=== PATIENT | male | born 1970 | race Caucasian/White ===

== ENCOUNTER 2016-04-13 | Emergency (ER) | payer SELFPAY ==
--- NOTE | 2016-04-13 23:54 | ED ---
Skin/Abscess/FB HPI - General Chief complaint: Skin/Abscess/Foreign Body Stated complaint: abscess Time Seen by Provider: 04/13/16 23:44 Source: patient, RN notes reviewed Mode of arrival: ambulatory Limitations: no limitations - History of Present Illness Initial comments: 45-year-old male presents to the emergency department with a chief complaint of abscess to left arm. Patient has a history of sepsis denies history of MRSA. Patient states she's been no drainage is very hard and tender under the arm. Patient states that he was concerned due to the pain today thought that he should be seen. Patient states isn't currently having any other symptoms at this time.Patient denies any recent fever, chills, shortness of breath, chest pain, back pain, abdominal pain, nausea vomiting, numbness or tingling, dysuria or hematuria, constipation or diarrhea, headaches or visual changes, or any other current symptoms. - Related Data Previous Rx's Medication Instructions Recorded Sulfamethox-Tmp 800-160Mg [Bactrim 2 each PO Q12HR #56 tab 04/13/16 DS 800-160 mg] Allergies Allergy/AdvReac Type Severity Reaction Status Date / Time codeine Allergy Severe Dyspnea Verified 04/13/16 23:36 Review of Systems ROS Statement: Those systems with pertinent positive or pertinent negative responses have been documented in the HPI. ROS Other: All systems not noted in ROS Statement are negative. Past Medical History Additional Past Medical History / Comment(s): Abscess History of Any Multi-Drug Resistant Organisms: None Reported Past Surgical History: No Surgical Hx Reported Past Psychological History: Panic Disorder Smoking Status: Current every day smoker Past Alcohol Use History: None Reported Past Drug Use History: None Reported General Exam Limitations: no limitations General appearance: alert, in no apparent distress Head exam: Present: atraumatic, normocephalic, normal inspection ENT exam: Present: normal exam, mucous membranes moist Neck exam: Present: normal inspection. Absent: tenderness, meningismus, lymphadenopathy Respiratory exam: Present: normal lung sounds bilaterally. Absent: respiratory distress, wheezes, rales, rhonchi, stridor Cardiovascular Exam: Present: regular rate, normal rhythm, normal heart sounds. Absent: systolic murmur, diastolic murmur, rubs, gallop, clicks Extremities exam: Present: normal inspection, full ROM, normal capillary refill. Absent: tenderness, pedal edema, joint swelling, calf tenderness Neurological exam: Present: alert, oriented X3, CN II-XII intact. Absent: motor sensory deficit Psychiatric exam: Present: normal affect, normal mood Skin exam: Present: warm, dry, intact, other (Patient does appear to have an abscess under the left axilla that is indurated with no fluctuance) Course Vital Signs 04/13/16 23:34 Temperature 98.6 F Pulse Rate 88 Respiratory 18 Rate Blood Pressure 147/77 O2 Sat by Pulse 98 Oximetry Procedures - Procedures Initial comment: It was cleaned and prepped. An 18-gauge was used to excise the wound and no purulent material was received. Medical Decision Making - Medical Decision Making 45 yo male presents with appears to be an abscess on the left axilla however is very indurated with no fluctuance and no purulent material was excise. At this time we will start patient on antibiotics. We discussed return parameters and follow-up. We discussed all the patient's family's questions. He stated that they understood all questions have been answered. They will be discharged home. Disposition Clinical Impression: Abscess of left axilla Disposition: HOME SELF-CARE Condition: Stable Instructions: Abscess (ED) Additional Instructions: Please use medication as discussed. Please follow up with family doctor if symptoms have not improved over the next two days. Please return to the emergency room if your symptoms increase or worsen or for any other concerns. Prescriptions: Sulfamethox-Tmp 800-160Mg [Bactrim DS 800-160 mg] 2 each PO Q12HR #56 tab Referrals: Vielka Cerrato MD [Primary Care Provider] - 1-2 days Time of Disposition: 23:53
== END 2016-04-14 00:15 | disposition home or self-care (01) ==
CPT/HCPCS: 99282

== ENCOUNTER → 2018-07-14 | Outpatient (CLI) | payer OTHER ==
--- NOTE | 2018-07-14 13:16 | P.STRESS ---
- Stress Test Note Stress Test Results/Findings: Exam Performed: stress test Exam Date: 07/14/18 Reason for Exam: CHEST PAIN Height: 5 ft 11 in Weight: 109.769 kg Protocol: AVERY Stage: 2 Duration of Exercise: 4:30 Resting Heart Rate: 93 Resting Blood Pressure: 123/65 Maximum Achieved Heart Rate: 160 Maximum Achieved Blood Pressure: 184/51 85% PMHR: 148 100% PMHR: 174 METS: 6.4 Technologist Comment: Stress Test Results/Findings: This is a 47-year-old gentleman with history of chest pains being evaluated for cardiac status. New Stress data: Baseline EKG showed sinus rhythm with normal UT interval and QRS duration. Blood pressure at rest is 123/65 with pulse rate of 93. Patient walked on the Avery protocol for 4 minutes and 30 seconds achieving a maximum rate of 160 with a blood pressure 1 8451. EKGs taken during and after the exercise did not reveal any changes of ischemia. Final impression: #1. Negative stress test #2. Below average exercise capacity #3. Patient did not express any chest pain #4. No arrhythmias noted.
--- NOTE | 2018-07-15 09:32 | EST ---
Stress Test Results/Findings: Exam Performed: stress test Exam Date: 07/14/18 Reason for Exam: CHEST PAIN Height: 5 ft 11 in Weight: 109.769 kg Protocol: AVERY Stage: 2 Duration of Exercise: 4:30 Resting Heart Rate: 93 Resting Blood Pressure: 123/65 Maximum Achieved Heart Rate: 160 Maximum Achieved Blood Pressure: 184/51 85% PMHR: 148 100% PMHR: 174 METS: 6.4 Technologist Comment: Stress Test Results/Findings: This is a 47-year-old gentleman with history of chest pains being evaluated for cardiac status. New Stress data: Baseline EKG showed sinus rhythm with normal NM interval and QRS duration. Blood pressure at rest is 123/65 with pulse rate of 93. Patient walked on the Avery protocol for 4 minutes and 30 seconds achieving a maximum rate of 160 with a blood pressure 1 8451. EKGs taken during and after the exercise did not reveal any changes of ischemia. Final impression: #1. Negative stress test #2. Below average exercise capacity #3. Patient did not express any chest pain #4. No arrhythmias noted. MTDD
== END | disposition home or self-care (01) ==
LOC: RADNMMAIN 09:58
PROVIDERS: ATTEND Family Medicine
DX: R07.9 Chest pain, unspecified (principal); Z88.5 Allergy status to narcotic agent
CPT/HCPCS: 93017

== ENCOUNTER 2019-10-08 03:06 | Emergency (ER) | payer OTHER ==
--- NOTE | 2019-10-08 03:28 | ED ---
General Adult HPI - General Source: patient, police Mode of arrival: ambulatory Limitations: no limitations <Guzman Brothers - Last Filed: 10/08/19 06:33> <Deric Jovel - Last Filed: 10/08/19 10:08> - General Chief complaint: Psychiatric Symptoms Stated complaint: Depression Time Seen by Provider: 10/08/19 03:16 - History of Present Illness Initial comments: Dictation was produced using [employer] dictation software. please excuse any grammatical, word or spelling errors. This patient was cared for during a federal and state declared state of emergency secondary to Covid 19 Chief Complaint: 49-year-old female presents with depression History of Present Illness: 49-year-old male presents with depression. Patient states she's been crying a lot recently. Patient denies any suicidal or homicidal ideation. No visual auditory hallucinations. He has no pain complaints. Patient has no medical complaints. States that he is depressed because he is going to relationship problems with his . The ROS documented in this emergency department record has been reviewed and confirmed by me. Those systems with pertinent positive or negative responses have been documented in the HPI. All other systems are other negative and/or noncontributory. PHYSICAL EXAM: General Impression: Alert and oriented x3, not in acute distress HEENT: Normocephalic atraumatic, extra-ocular movements intact, pupils equal and reactive to light bilaterally, mucous membranes moist. Cardiovascular: Heart regular rate and rhythm Chest: Able to complete full sentences, no retractions, no tachypnea Abdomen: abdomen soft, non-tender, non-distended, no organomegaly Musculoskeletal: Pulses present and equal in all extremities, no peripheral edema Motor: no focal deficits noted Neurological: CN II-XII grossly intact, no focal motor or sensory deficits noted Skin: Intact with no visualized rashes Psych: Normal affect and mood ED course: 49-year-old male presents with depression vital signs upon arrival are within acceptable limits. Patient medically cleared for EPS evaluation. Physical examination is benign. Patient medically cleared for EPS evaluation. Pending EPS evaluation. Patient will be signed out to oncoming physician for follow-up of EPS recommendations. (Guzman Brothers) - Related Data Previous Rx's Medication Instructions Recorded Sulfamethox-Tmp 800-160Mg [Bactrim 2 each PO Q12HR #56 tab 04/13/16 DS 800-160 mg] Allergies Allergy/AdvReac Type Severity Reaction Status Date / Time codeine Allergy Severe Dyspnea Verified 10/08/19 03:14 Review of Systems ROS Other: All systems not noted in ROS Statement are negative. <Guzman Brothers - Last Filed: 10/08/19 06:33> ROS Other: All systems not noted in ROS Statement are negative. <Deric Jovel - Last Filed: 10/08/19 10:08> ROS Statement: Those systems with pertinent positive or pertinent negative responses have been documented in the HPI. Past Medical History Additional Past Medical History / Comment(s): Abscess History of Any Multi-Drug Resistant Organisms: None Reported Past Surgical History: No Surgical Hx Reported Past Psychological History: Anxiety, Depression, Panic Disorder Smoking Status: Current every day smoker Past Alcohol Use History: None Reported Past Drug Use History: None Reported <Guzman Brothers - Last Filed: 10/08/19 06:33> General Exam Limitations: no limitations <Guzman Brothers - Last Filed: 10/08/19 06:33> Course Vital Signs 10/08/19 03:11 Temperature 98.4 F Pulse Rate 94 Respiratory 18 Rate Blood Pressure 155/90 O2 Sat by Pulse 98 Oximetry Medical Decision Making <Deric Jovel - Last Filed: 10/08/19 10:08> - Medical Decision Making The patient was endorsed me by Dr. Brothers at her shift change. He's been resting comfortably throughout the morning. He was evaluated by the psychiatric service found not to be risk to himself or anyone else is a safety plan has been developed for him. (Deric Jovel) Disposition <Guzman Brothers - Last Filed: 10/08/19 06:33> Is patient prescribed a controlled substance at d/c from ED?: No <Deric Jovel - Last Filed: 10/08/19 10:08> Clinical Impression: Adjustment reaction of adult life Disposition: HOME SELF-CARE Condition: Good Instructions (If sedation given, give patient instructions): Stress (ED), Mood Disorders (ED) Referrals: Vielka Cerrato MD [Primary Care Provider] - 1-2 days
[2019-10-08 10:25] VITALS: BP 128/73; PULSE 80; RESP 16; TEMP 97.7
== END 2019-10-08 10:25 | disposition home or self-care (01) ==
LOC: EC 03:06
DX: F43.20 Adjustment disorder, unspecified (principal); F17.200 Nicotine dependence, unspecified, uncomplicated; Z88.5 Allergy status to narcotic agent
CPT/HCPCS: 82075; 99284

== ENCOUNTER 2019-10-13 15:33 | Emergency (ER) | payer OTHER ==
[2019-10-13 15:49] VITALS: RESP 18
--- NOTE | 2019-10-13 16:13 | ED ---
General Adult HPI - General Chief complaint: Psychiatric Symptoms Stated complaint: Mental Health Time Seen by Provider: 10/13/19 15:43 Source: patient, EMS, RN notes reviewed Mode of arrival: EMS Limitations: no limitations - History of Present Illness Initial comments: Patient is a pleasant 49-year-old male presenting to the emergency Department with depression and stress and suicidal thoughts. Patient states he had suicidal thoughts prior to arrival however no longer has those. Patient did not have a plan for suicide attempt. Patient states he has been stressed and depressed for the past 6 weeks or so. Patient has been previously admitted to mental health however that was around 8 years ago. No homicidal thoughts. No hallucinations. No alcohol or street drug use. No physical complaints. - Related Data Home Medications Medication Instructions Recorded Confirmed No Known Home Medications 10/13/19 10/13/19 Allergies Allergy/AdvReac Type Severity Reaction Status Date / Time codeine Allergy Severe Dyspnea Verified 10/13/19 16:58 Review of Systems ROS Statement: Those systems with pertinent positive or pertinent negative responses have been documented in the HPI. ROS Other: All systems not noted in ROS Statement are negative. Constitutional: Denies: fever Eyes: Denies: eye pain ENT: Denies: ear pain Respiratory: Denies: cough Cardiovascular: Denies: chest pain Endocrine: Denies: fatigue Gastrointestinal: Denies: abdominal pain Genitourinary: Denies: dysuria Musculoskeletal: Denies: back pain Skin: Denies: rash Neurological: Denies: weakness Psychiatric: Reports: anxiety, depression Past Medical History Additional Past Medical History / Comment(s): Abscess History of Any Multi-Drug Resistant Organisms: None Reported Past Surgical History: No Surgical Hx Reported Past Psychological History: Anxiety, Depression, Panic Disorder Smoking Status: Current every day smoker Past Alcohol Use History: None Reported Past Drug Use History: None Reported General Exam Limitations: no limitations General appearance: alert, in no apparent distress Head exam: Present: normocephalic Eye exam: Present: normal appearance Neck exam: Present: normal inspection Respiratory exam: Present: normal lung sounds bilaterally Cardiovascular Exam: Present: regular rate, normal rhythm GI/Abdominal exam: Present: soft. Absent: tenderness Extremities exam: Present: normal inspection Neurological exam: Present: alert Psychiatric exam: Present: depressed, flat affect Skin exam: Present: normal color Course Vital Signs 10/13/19 10/13/19 10/13/19 15:43 15:49 16:49 Temperature 98.5 F Pulse Rate 102 H Respiratory 18 18 18 Rate Blood Pressure 147/82 O2 Sat by Pulse 99 Oximetry Medical Decision Making - Medical Decision Making Patient seen by mental health services who recommends discharge and patient follow up with [facility] on Wednesday. Patient reevaluated and updated. - Lab Data Lab Results 10/13/19 Range/Units 17:48 Urine Opiates Screen Not Detected (NotDetected) Ur Oxycodone Screen Not Detected (NotDetected) Urine Methadone Screen Not Detected (NotDetected) Ur Propoxyphene Screen Not Detected (NotDetected) Ur Barbiturates Screen Not Detected (NotDetected) U Tricyclic Antidepress Not Detected (NotDetected) Ur Phencyclidine Scrn Not Detected (NotDetected) Ur Amphetamines Screen Detected H (NotDetected) U Methamphetamines Scrn Detected H (NotDetected) U Benzodiazepines Scrn Not Detected (NotDetected) Urine Cocaine Screen Not Detected (NotDetected) U Marijuana (THC) Screen Not Detected (NotDetected) Disposition Clinical Impression: Depression Disposition: HOME SELF-CARE Condition: Stable Instructions (If sedation given, give patient instructions): Depression (ED), Help Prevent Suicide (ED) Additional Instructions: Please follow-up with [facility] Wednesday as directed. He is also follow-up with primary care physician. Return for worsening symptoms, thoughts of self-harm or other concerns. Is patient prescribed a controlled substance at d/c from ED?: No Referrals: Vielka Cerrato MD [Primary Care Provider] - 1-2 days Time of Disposition: 18:33
[2019-10-13 18:18] LABS: Amphetamine Screen,Urine Detected (NotDetected); Barbiturate Screen,Urine Not Detected (NotDetected); Benzodiazepines Screen,Urine Not Detected (NotDetected); Cocaine Screen,Urine Not Detected (NotDetected); Methadone Screen, Urine Not Detected (NotDetected); Opiate Screen,Urine Not Detected (NotDetected); Oxycodone Screen, Urine Not Detected (NotDetected); Phencyclidine Screen,Urine Not Detected (NotDetected); Tricyclic Antidepressant,Urine Not Detected (NotDetected); Urn Cannabinoid Scrn Not Detected (NotDetected)
[2019-10-13] MEDS ORDERED: LORazepam 1 MG TAB PO STA ×2 (18:32→18:33)
[2019-10-13 18:51] VITALS: BP 116/76; PULSE 78; TEMP 98
== END 2019-10-13 18:55 | disposition home or self-care (01) ==
LOC: EC 15:33
DX: F32.9 Major depressive disorder, single episode, unspecified (principal); F41.9 Anxiety disorder, unspecified; R45.851 Suicidal ideations; F17.200 Nicotine dependence, unspecified, uncomplicated; Z88.5 Allergy status to narcotic agent
CPT/HCPCS: 80306; 82075; 99285

== ENCOUNTER 2019-10-17 04:57 | Inpatient (IN) | payer MEDICAID, OTHER ==
--- NOTE | 2019-10-17 05:00 | ED ---
Psych HPI - General Source: RN notes reviewed, old records reviewed - History of Present Illness Complaint: suicidal ideation, feels depressed -: unknown Associated Psychiatric Symptoms: depression History of same: Yes Quality: constant Improves With: none Worsens With: none Context: not taking psychiatric medications Associated Symptoms: denies other symptoms Treatments Prior to Arrival: placed on mental health hold If Self Harm: admits thoughts of self harm <Alex Pro - Last Filed: 10/17/19 06:09> <Deric Jovel - Last Filed: 10/17/19 10:15> - General Stated Complaint: mental health Time Seen by Provider: 10/17/19 05:00 - History of Present Illness Initial Comments: This is a 48-year-old male to the ER for evaluation patient presents for psychiatric illness and depression. Patient july, is on Facebook apparently her allegedly tonight EMS and PD was called by patient's . She did find patient having on the house they bring patient today for psychiatric evaluation he was here earlier last week or later [place] for psychiatric evaluation as well (Alex Pro) - Related Data Home Medications Medication Instructions Recorded Confirmed ARIPiprazole [Abilify] 5 mg PO HS 10/17/19 10/17/19 risperiDONE [RisperDAL] 0.25 mg PO HS 10/17/19 10/17/19 Allergies Allergy/AdvReac Type Severity Reaction Status Date / Time codeine Allergy Severe Dyspnea Verified 10/17/19 08:30 Review of Systems ROS Other: All systems not noted in ROS Statement are negative. <Alex Pro - Last Filed: 10/17/19 06:09> ROS Other: All systems not noted in ROS Statement are negative. <Deric Jovel - Last Filed: 10/17/19 10:15> ROS Statement: Those systems with pertinent positive or pertinent negative responses have been documented in the HPI. Past Medical History Additional Past Medical History / Comment(s): Abscess History of Any Multi-Drug Resistant Organisms: None Reported Past Surgical History: No Surgical Hx Reported Past Psychological History: Anxiety, Depression, Panic Disorder Smoking Status: Current every day smoker Past Alcohol Use History: None Reported Past Drug Use History: None Reported <Alex Pro - Last Filed: 10/17/19 06:09> General Exam General appearance: alert, in no apparent distress Head exam: Present: atraumatic, normocephalic, normal inspection Eye exam: Present: normal appearance, PERRL, EOMI. Absent: scleral icterus, conjunctival injection, periorbital swelling ENT exam: Present: normal exam, mucous membranes moist Neck exam: Present: normal inspection. Absent: tenderness, meningismus, lymphadenopathy Respiratory exam: Present: normal lung sounds bilaterally. Absent: respiratory distress, wheezes, rales, rhonchi, stridor Cardiovascular Exam: Present: normal rhythm, tachycardia, normal heart sounds. Absent: systolic murmur, diastolic murmur, rubs, gallop, clicks GI/Abdominal exam: Present: soft, normal bowel sounds. Absent: distended, tenderness, guarding, rebound, rigid Extremities exam: Present: normal inspection, full ROM, normal capillary refill. Absent: tenderness, pedal edema, joint swelling, calf tenderness Back exam: Present: normal inspection Neurological exam: Present: alert, oriented X3, CN II-XII intact Psychiatric exam: Present: normal affect, normal mood Skin exam: Present: warm, dry, intact, normal color. Absent: rash <Alex Pro - Last Filed: 10/17/19 06:09> Course <Alex Pro - Last Filed: 10/17/19 06:09> Vital Signs 10/17/19 10/17/19 05:00 08:00 Temperature 99.3 F Pulse Rate 113 H Respiratory 18 18 Rate Blood Pressure 176/97 O2 Sat by Pulse 100 Oximetry - Reevaluation(s) Reevaluation #1: 10/17/19 06:11 Medical record and ER visit are reviewed (Alex Pro) Reevaluation #2: 10/17/19 06:11 Patient is medically clear for psychiatric evaluation (Alex Pro) Medical Decision Making <Deric Jovel - Last Filed: 10/17/19 10:15> - Medical Decision Making The patient was evaluated by psychiatric service and found to be wrist to himself I did fill out a clinical certification. Patient be admitted for inpatient treatment of depression and suicidal ideation. (Deric Jovel) Disposition <Alex Pro - Last Filed: 10/17/19 06:09> <Deric Jovel - Last Filed: 10/17/19 10:15> Clinical Impression: Suicidal ideation, Depression Disposition: TRANSFER TO PSYCH HOSP/UNIT Condition: Fair Referrals: Vielka Cerrato MD [Primary Care Provider] - 1-2 days
[2019-10-17] MEDS ORDERED: ACETAMINOPHEN TAB 325 MG TAB PO PRN (12:43)
[2019-10-17] MEDS ORDERED: ZIPRASIDONE 20 MG VIAL IM PRN (12:43)
[2019-10-17] MEDS ORDERED: MAGNESIUM HYDROXIDE 2,400 MG/10 ML CUP PO PRN (12:43)
[2019-10-17] MEDS ORDERED: MAG HYDROX/AL HYDROX/SIMETH 30 ML CUP PO PRN (12:43)
[2019-10-17] MEDS ORDERED: LORazepam 1 MG TAB PO PRN (12:43)
[2019-10-17] MEDS: NICOTINE 14MG/24HR PATCH TRANSDERM SCH (13:37)
[2019-10-17] MEDS ORDERED: ARIPiprazole 5 MG TAB PO SCH (21:00)
[2019-10-18 08:30] LABS: ALT 25 U/L (4-49); AST 28 U/L (17-59); African American GFR (CKD) >90 (>60 ml/min/1.73 sqM); Albumin 3.4 g/dL (3.5-5.0); Alkaline Phosphatase 82 U/L (38-126); Anion Gap 2 mmol/L; Blood Urea Nitrogen 14 mg/dL (9-20); Calcium 8.4 mg/dL (8.4-10.2); Carbon Dioxide 31 mmol/L (22-30); Chloride 107 mmol/L (98-107); Glucose 106 mg/dL (74-99); Non-African American GFR(CKD) >90 (>60 ml/min/1.73 sqM); Potassium 4.1 mmol/L (3.5-5.1); Sodium 140 mmol/L (137-145); Total Bilirubin 0.4 mg/dL (0.2-1.3); Total Protein 6.2 g/dL (6.3-8.2)
[2019-10-18] MEDS: NICOTINE 14MG/24HR PATCH TRANSDERM SCH (08:39)
--- NOTE | 2019-10-18 12:05 | P.HP ---
Psychiatric H&P - . H&P Date: 10/18/19 History & Physical: Allergies Allergy/AdvReac Type Severity Reaction Status Date / Time codeine Allergy Severe Dyspnea Verified 10/17/19 13:03 Vital Signs Temp 97.0 F L 10/17/19 13:42 Pulse 80 10/17/19 13:03 Resp 18 10/17/19 13:42 BP 131/85 10/17/19 13:03 Pulse Ox 98 10/17/19 13:42 Intake & Output 10/17/19 10/18/19 10/18/19 18:59 06:59 18:59 Weight 119.295 kg Laboratory Last Values Sodium 140 mmol/L (137-145) 10/18/19 07:35 Potassium 4.1 mmol/L (3.5-5.1) 10/18/19 07:35 Chloride 107 mmol/L (98-107) 10/18/19 07:35 Carbon Dioxide 31 mmol/L (22-30) H 10/18/19 07:35 Anion Gap 2 mmol/L 10/18/19 07:35 BUN 14 mg/dL (9-20) 10/18/19 07:35 Creatinine 0.97 mg/dL (0.66-1.25) 10/18/19 07:35 Est GFR (CKD-EPI)AfAm >90 (>60 ml/min/1.73 sqM) 10/18/19 07:35 Est GFR (CKD-EPI)NonAf >90 (>60 ml/min/1.73 sqM) 10/18/19 07:35 Glucose 106 mg/dL (74-99) H 10/18/19 07:35 Calcium 8.4 mg/dL (8.4-10.2) 10/18/19 07:35 Total Bilirubin 0.4 mg/dL (0.2-1.3) 10/18/19 07:35 AST 28 U/L (17-59) 10/18/19 07:35 ALT 25 U/L (4-49) 10/18/19 07:35 Alkaline Phosphatase 82 U/L (38-126) 10/18/19 07:35 Total Protein 6.2 g/dL (6.3-8.2) L 10/18/19 07:35 Albumin 3.4 g/dL (3.5-5.0) L 10/18/19 07:35 10/18/19 11:57 IDENTIFYING DATA: Patient is a 49-year-old male who is currently lives with his mother and house has 2 kids is unemployed. HPI: Patient presented to the hospital yesterday for depression and suicidal thoughts. Patient was seen to previous times in the ER for similar complaints within the past 10 days. Patient was brought in by police and was petitioned stating that patient made suicidal statements towards his on Facebook. Patient's called the housecleaner who brought him in the hospital. Patient was seen today for evaluation and claims that he recently had with his approximately 1-1/2 months ago. He states that they have been having relationship issues and have recently started talking again. He states that he has been hoping that there would be a spark and that they would get back together romantically. He states that he feels that she has been playing "mind games with me" and stated that "she wants to be with me on one hand and then on the other she doesn't". She states that he sent the message to her over Facebook and claims that he regretted it right away and claims that he was mainly seeking "attention" from her. He admits to impulsivity problems. He states that his mood has been "unstable" however denies any depression at this time. He states that he does not have any anxiety. He claims that he was on his Abilify by mouth through [facility] however stopped taking his medications 3 months ago. He states that he sleeps about 7-8 hours a night. Patient denies any suicidal or homicidal ideations intent or plan. At this time patient denies any auditory or visual hallucinations. Patient denies any flight of ideas racing thoughts and increased in goal directed behavior. Patient admits to using cigarettes daily and claims to use meth approximately 3-4 times a week and states that his last use was 1 week ago. He denies any other recreational drug use and alcohol. PAST PSYCHIATRIC HISTORY: Patient states that he has a history of PTSD and major depressive disorder. Patient was previously on Abilify by mouth however stopped taking it 3 months ago. He was supposed to be on Abilify Maintenna long-acting injection however he refused to get his injection in June 2019. Games at his last psychiatric hospitalization was 9 years ago. Ate that he follows up with [facility] in the nurse practitioner Dennise. Patient denies any history of suicide attempts in the past. PMH:denies ALLERGIES: as per EMR CHEMICAL DEPENDENCY HISTORY: as per HPI FAMILY PSYCHIATRIC/SUBSTANCE USE HISTORY: He states that his son has autism SOCIAL HISTORY: Patient was born and raised in [place] and claims that he completed up to the 11th grade. He states that he currently lives with his mother in a house and has 2 kids is unemployed. He denies any legal problems in the past.. MENTAL STATUS EXAM: General Appearance: Patient appears to be stated age is overweight, alert, directable, and attempts to cooperate. Patient appears to have poor hygiene and grooming. Behavior: Patient is seated without any agitated behavior. Tearful at times. Speech: Patient's speech is fluent and nonpressured. Mood/Affect: Patient reports their mood is "unstable". affect is congruent and tearful. Suicidality/Homicidality: Patient denies having any homicidal ideation intent or plan. Denies any suicidal ideations intent or plan Perceptions: Patient denies any visual hallucinations and denies any auditory hallucinations Though content/process: There is no evidence of any delusional thought content and thought process is linear and goal-directed. [place]. Memory and concentration: AOX3, grossly intact for the purposes of this session. Can spell "WORLD" backwards Judgment and insight: poor/superficial STRENGTHS/WEAKNESSES: strength is that patient is resilient. Weakness is that patient has poor judgment and is impulsive INTELLECT: Below average IMPRESSIONS: Mood disorder unspecified, rule out bipolar disorder versus depression History of PTSD Methamphetamine abuse Nicotine dependence PLAN: -Patient is admitted under voluntary status to MHU for stabilization of psychiatric symptoms and safety. Patient signed adult voluntary form and medication consent and is placed in patient's chart. -Medications : Will start patient on Abilify by mouth which will be titrated up to 7.5 mg nightly for mood stabilization. Patient is agreeable to take Abilify Maintenna long-acting injection prior to discharge to ensure compliance. -Ativan and Geodon PRN for agitation/aggression -Patient was counselled on substance abuse and desired to cut back on use -Patient was informed of the risks, benefits and side effects of the medication and patient verbally consented to taking the medications. Patient signed med consent form and was placed in chart. -Internal Medicine consult to perform medical evaluation and physical. -NRT - nicotine patch -SW on board for discharge planning. Encourage patient to participate in groups to work on coping skills.
[2019-10-18] MEDS ORDERED: ARIPiprazole 5 MG TAB PO SCH (21:00)
--- NOTE | 2019-10-19 00:02 | P.MDCNMH ---
History of Present Illness H&P Date: 10/18/19 Chief Complaint: suicidal ideation Patient is a 49-year-old male with a known history of DC, no history of cardiac catheterization or PCI, currently everyday smoker was brought to the hospital for psychiatric evaluation and suicidal ideation. Apparently patient posted on his Facebook that he is suicidal and patient's called the police department. Patient is also currently undergoing divorce. Patient has not been taking his medications. He is currently on Abilify and Risperdal at home. Otherwise denied any chest pain or shortness of breath. No nausea vomiting abdominal pain or diarrhea. No dysuria or hematuria. No cough or sputum production. Denied any recent illnesses. Laboratory data showed sodium 140, potassium 4.1, BUN 14 and creatinine 0.97 Albumin 3.4 Blood sugar is 106 Review of Systems Constitutional: Patient denies any fever or chills . No generalized weakness or weight loss. Abdomen: Patient denied nausea vomiting and diarrhea and abdominal pain. Cardiovascular: Patient denies any chest pain or short of breath no palpitations. Respiratory: patient denied any cough is from production. No shortness of breath Neurologic: Patient denied any numbness or tingling headache. Musculoskeletal: Patient denies any complaints of joint swelling or deformity. Skin: Negative Psychiatric: Negative Endocrine: No heat or cold intolerance. No recent weight gain. Genitourinary: No dysuria or hematuria. All other 14 point ROS negative except the above Past Medical History Past Medical History: Myocardial Infarction (DC) Additional Past Medical History / Comment(s): Abscess Last Myocardial Infarction Date:: 2016 History of Any Multi-Drug Resistant Organisms: None Reported Past Surgical History: No Surgical Hx Reported Smoking Status: Current every day smoker Medications and Allergies Home Medications Medication Instructions Recorded Confirmed Type ARIPiprazole [Abilify] 5 mg PO HS 10/17/19 10/17/19 History risperiDONE [RisperDAL] 0.25 mg PO HS 10/17/19 10/17/19 History Allergies Allergy/AdvReac Type Severity Reaction Status Date / Time codeine Allergy Severe Dyspnea Verified 10/17/19 13:03 Physical Exam PHYSICAL EXAMINATION: Patient is lying in the bed comfortably, no acute distress, awake alert and oriented.. HEENT: Normocephalic. Neck is supple. Pupils reactive. Nostrils clear. Oral cavity is moist. Ears reveal no drainage. Neck reveals no JVD, carotid bruits, or thyromegaly. CHEST EXAMINATION: Trachea is central. Symmetrical expansion. Lung trujillo clear to auscultation and percussion. CARDIAC: Normal S1, S2 with no gallops. No murmurs ABDOMEN: Soft. Bowel sounds normal. No organomegaly. No abdominal bruits. Extremities: reveal no edema. No clubbing or cyanosis Neurologically awake, alert, oriented x3 with well-coordinated movements. No focal deficits noted Skin: No rash or skin lesions. Psychiatric: Coperative. Nonsuicidal Musculoskeletal: No joint swelling or deformity. Normal range of motion. Cranial Nerve Examination - Cranial Nerves Cranial Nerve I- Olfactory: Intact Cranial Nerve II- Optic: Intact Cranial Nerve III- Oculomotor: Intact Cranial Nerve IV- Trochlear: Intact Cranial Nerve V- Trigeminal: Intact Cranial Nerve - Abducens: Intact Cranial Nerve VII- Facial: Intact Cranial Nerve VIII- Auditory: Intact Cranial Nerve IX- Glossopharyngeal: Intact Cranial Nerve X- Vagus: Intact Cranial Nerve XI- Accessory: Intact Cranial Nerve XII- Hypoglossal: Intact Results CBC & Chem 7: 10/18/19 07:35 Labs: Abnormal Lab Results - Last 24 Hours (Table) 10/18/19 Range/Units 07:35 Carbon Dioxide 31 H (22-30) mmol/L Glucose 106 H (74-99) mg/dL Total Protein 6.2 L (6.3-8.2) g/dL Albumin 3.4 L (3.5-5.0) g/dL Assessment and Plan Assessment: Depression with suicidal thoughts. Denied any plan. Mood disorder. History of PTSD Depression Ongoing nicotine addiction Morbid obesity BMI 35.7 DVT prophylaxis with early ambulation Plan: Patient will be continued on current psychiatric medications. Smoking cessation has been counseled. Further recommendations based on the clinical course. Thank you for your consult.
[2019-10-19] MEDS: NICOTINE 14MG/24HR PATCH TRANSDERM SCH (08:33)
--- NOTE | 2019-10-19 10:27 | P.PN ---
Progress Note - Text Progress Note Date: 10/19/19 Interval History: Patient was seen [wandering the hallways] and was directable and agreeable to speak with music writer in the office. Patient continues to be superficial and minimizing his reasons for being in the hospital. He continues to be superficial but his medications and speaking about discharge. He claims that his mood has been gradually improving. He states that he spoke with his yesterday as she came to visit him and states that she believes that he is more stable when he is taking his medications at home. He states that he has been going to groups and trying to participate as best as he can. He claims that he slept approximately 7 hours last night. Patient was tearful at times when speaking about home and about his impulsivity. At this time patient denies any suicidal or homical ideations, intent or plan. Patient denies any auditory, visual hallucinations and denies any paranoia or delusions. Patient denies any side effects from the medications and has been compliant with meds. Mental Status Exam: General Appearance: Patient appears to be stated age is overweight, alert, directable, and attempts to cooperate. Patient appears to have poor hygiene and grooming. Behavior: Patient is seated without any agitated behavior. Tearful at times. Superficial at times. Speech: Patient's speech is fluent and nonpressured. Mood/Affect: Patient reports their mood is "getting there". affect is congruent Suicidality/Homicidality: Patient denies having any homicidal ideation intent or plan. Denies any suicidal ideations intent or plan Perceptions: Patient denies any visual hallucinations and denies any auditory hallucinations Though content/process: There is no evidence of any delusional thought content and thought process is linear and goal-directed. [place]. Focused on discharge Memory and concentration: AOX3, grossly intact for the purposes of this session. Judgment and insight: poor/superficial, improving mildly Assessment: Mood disorder unspecified, rule out bipolar disorder versus depression History of PTSD Methamphetamine abuse Nicotine dependence Plan: -Patient is admitted under voluntary status to MHU for stabilization of psychiatric symptoms and safety. Patient signed adult voluntary form and medication consent and is placed in patient's chart. -Medications : Increased Abilify by mouth 10 mg nightly for mood stabilization. Patient is agreeable to take Abilify Maintenna long-acting injection prior to discharge to ensure compliance. -Ativan and Geodon PRN for agitation/aggression -Patient was counselled on substance abuse and desired to cut back on use -Patient was informed of the risks, benefits and side effects of the medication and patient verbally consented to taking the medications. Patient signed med consent form and was placed in chart. -Internal Medicine consult to perform medical evaluation and physical. -NRT - nicotine patch -SW on board for discharge planning. Encourage patient to participate in groups to work on coping skills. Likely discharge in 1-2 days.
[2019-10-19] MEDS ORDERED: ARIPiprazole 10 MG TAB PO SCH (21:00)
[2019-10-20 04:03] VITALS: RESP 17
[2019-10-20 06:31] VITALS: BP 129/60; PULSE 87
[2019-10-20] MEDS: NICOTINE 14MG/24HR PATCH TRANSDERM SCH (08:52)
[2019-10-20] MEDS ORDERED: ARIPiprazole IM SYRINGE 400 MG (NO CHARGE) IM ONE (09:19)
--- NOTE | 2019-10-20 09:19 | P.DS ---
Providers Date of admission: 10/17/19 12:19 Expected date of discharge: 10/20/19 Attending physician: Nathanael Mcdonough MD Consults: 10/17/19 12:43 Consult Physician Routine Consulting Provider: Lanette Mckeon Consult Reason/Comments: History and Physical Do you want consulting provider notified?: Yes Primary care physician: Saqib Vora - Discharge Diagnosis(es) (1) Unspecified mood [affective] disorder Current Visit: Yes Status: Acute Priority: High (2) History of posttraumatic stress disorder (PTSD) Current Visit: Yes Status: Acute Priority: Medium (3) Methamphetamine abuse Current Visit: Yes Status: Acute Priority: Medium (4) Nicotine dependence Current Visit: Yes Status: Acute Priority: Low Hospital Course: Admission HPI: Patient is a 49-year-old male who is currently lives with his mother and house has 2 kids is unemployed. Patient presented to the hospital yesterday for depression and suicidal thoughts. Patient was seen to previous times in the ER for similar complaints within the past 10 days. Patient was brought in by police and was petitioned stating that patient made suicidal statements towards his on Facebook. Patient's called the senior automation engineer who brought him in the hospital. Patient was seen today for evaluation and claims that he recently had with his approximately 1-1/2 months ago. He states that they have been having relationship issues and have recently started talking again. He states that he has been hoping that there would be a spark and that they would get back together romantically. He states that he feels that she has been playing "mind games with me" and stated that "she wants to be with me on one hand and then on the other she doesn't". She states that he sent the message to her over Facebook and claims that he regretted it right away and claims that he was mainly seeking "attention" from her. He admits to impulsivity problems. He states that his mood has been "unstable" however denies any depression at this time. He states that he does not have any anxiety. He claims that he was on his Abilify by mouth through [facility] however stopped taking his medications 3 months ago. He states that he sleeps about 7-8 hours a night. Patient denies any suicidal or homicidal ideations intent or plan. At this time patient denies any auditory or visual hallucinations. Patient denies any flight of ideas racing thoughts and increased in goal directed behavior. Patient admits to using cigarettes daily and claims to use meth approximately 3-4 times a week and states that his last use was 1 week ago. He denies any other recreational drug use and alcohol. Hospital course: Upon admission to the unit patient was initially superficial and labile. Patient was however directable and agreeable to commence treatment. Patient got along well with other patients on the unit and followed unit protocol. Patient was compliant with the medications and denied any side effects throughout hospital course. Patient was started on Abilify and titrated up to a dose of 10 mg nightly for mood stabilization. Patient was transitioned onto Abilify Maintenna long-acting injection and given dose of 400 mg IM on day of discharge 10/20/2019 and will be due for his next long-acting injection 400 mg on 11/17/2019. Patient spoke of his stressors and engaged in therapy both group and individual. Patient was also seen by medical team for history and physical exam. Throughout the course of the hospitalization patient gradually improved with regards to mood, anxiety, sleep and became future oriented with improved insight and judgment. On the day of discharge patient denied any suicidal or homicidal ideations intent or plan denied any auditory or visual hallucinations. Patient endorsed wanting to live for his future and his family. The patient denied any access to guns or weapons. Patient denied any paranoia and did not endorse any delusions. Patient does have a significant history of substance abuse and was counseled on abstaining from all substances including alcohol and marijuana. Patient was offered however declined inpatient substance-abuse rehab and wanted to quit substance use on his own. Patient was also counseled on the medications and need for regular compliance and was encouraged to follow-up with their outpatient appointment for mental health and also for primary care. Prior to discharge a family meeting will be arranged by medical social consultant to answer any questions and ensure safety upon discharge. Mental status exam: General Appearance: Patient appears to be stated age is overweight, alert, pleasant, and cooperative. Patient is in no acute distress and has fair hygiene and grooming Behavior: Patient is calmly seated without any agitated behavior. Cooperative today. Speech: Patient's speech is fluent and nonpressured. Mood/Affect: Patient reports their mood is "good", affect is congruent and euthymic. Suicidality/Homicidality: Patient denies having any suicidal or homicidal ideation intent or plan. Perceptions: Patient denies any auditory or visual hallucinations. Though content/process: There is no evidence of any delusional thought content and thought process is linear and goal-directed. [place]. more future oriented Memory and concentration: AOX3, grossly intact for the purposes of this session. Can spell "WORLD" backwards correctly. Judgment and insight: Improved with guarded prognosis Impression: Mood disorder unspecified, rule out bipolar disorder versus depressive disorder History of PTSD Methamphetamine abuse Nicotine dependence Plan: -Continue with discharge today as patient has improved and stabilized psychiatrically and is not currently an imminent threat to himself and/or others. Patient will remain at chronically elevated risk for harm to self and/or others due to his impulsivity and polysubstance abuse. -Continue medications: Continue with Abilify by mouth 10 mg nightly for mood stabilization for 14 days then discontinue. Patient was transitioned onto Abilify Maintenna long-acting injection and given dose of 400 mg IM on day of discharge 10/20/2019 and will be due for his next long-acting injection 400 mg on 11/17/2019. -Patient was counseled on the need for medication compliance and appropriate follow-up at mental health and also primary care for medical issues. Patient verbalized understanding and agreed. -Social work to arrange for and conduct family meeting to ensure safety upon discharge and answer any questions/concerns. Social work also to arrange for patients follow up appointments with [facility] for psychiatric care along with follow up with primary care provider. -Patient counseled on abstaining from recreational drugs and marijuana and alcohol. Was informed/educated on the adverse effects on their physical and mental health. Patient verbally agreed and understood. Patient was offered substance abuse treatment however declined at this time and wanted to cut back use on his own. -Patient was instructed to return to the hospital or seek immediate medical care if their psychiatric or medical symptoms do worsen or reoccur. Allergies Allergy/AdvReac Type Severity Reaction Status Date / Time codeine Allergy Severe Dyspnea Verified 10/17/19 13:03 Laboratory Results Sodium 140 mmol/L (137-145) 10/18/19 07:35 Potassium 4.1 mmol/L (3.5-5.1) 10/18/19 07:35 Chloride 107 mmol/L (98-107) 10/18/19 07:35 Carbon Dioxide 31 mmol/L (22-30) H 10/18/19 07:35 Anion Gap 2 mmol/L 10/18/19 07:35 BUN 14 mg/dL (9-20) 10/18/19 07:35 Creatinine 0.97 mg/dL (0.66-1.25) 10/18/19 07:35 Est GFR (CKD-EPI)AfAm >90 (>60 ml/min/1.73 sqM) 10/18/19 07:35 Est GFR (CKD-EPI)NonAf >90 (>60 ml/min/1.73 sqM) 10/18/19 07:35 Glucose 106 mg/dL (74-99) H 10/18/19 07:35 Calcium 8.4 mg/dL (8.4-10.2) 10/18/19 07:35 Total Bilirubin 0.4 mg/dL (0.2-1.3) 10/18/19 07:35 AST 28 U/L (17-59) 10/18/19 07:35 ALT 25 U/L (4-49) 10/18/19 07:35 Alkaline Phosphatase 82 U/L (38-126) 10/18/19 07:35 Total Protein 6.2 g/dL (6.3-8.2) L 10/18/19 07:35 Albumin 3.4 g/dL (3.5-5.0) L 10/18/19 07:35 Vital Signs Temp 97.9 F 10/20/19 04:02 Pulse 87 10/20/19 04:02 Resp 17 10/20/19 04:02 BP 129/60 10/20/19 04:02 Pulse Ox 98 10/20/19 04:02 Patient Condition at Discharge: Stable Plan - Discharge Summary New Discharge Prescriptions: New ARIPiprazole [Abilify] 10 mg PO HS 14 Days #14 tab ARIPiprazole IM [Abilify Maintena] 400 mg IM QMONTH #1 vial Nicotine 14Mg/24Hr Patch [Habitrol] 1 patch TRANSDERM DAILY 14 Days patch Acetaminophen Tab [Tylenol] 650 mg PO Q4HR PRN tab PRN Reason: Pain/Discomfort Discontinued risperiDONE [RisperDAL] 0.25 mg PO HS ARIPiprazole [Abilify] 5 mg PO HS Discharge Medication List ARIPiprazole IM [Abilify Maintena] 400 mg IM QMONTH #1 vial 10/20/19 [Rx] ARIPiprazole [Abilify] 10 mg PO HS 14 Days #14 tab 10/20/19 [Rx] Acetaminophen Tab [Tylenol] 650 mg PO Q4HR PRN tab 10/20/19 [Rx] Nicotine 14Mg/24Hr Patch [Habitrol] 1 patch TRANSDERM DAILY 14 Days patch 10/20/19 [Rx] Follow up Appointment(s)/Referral(s): [facility] [Outside] - 10/25/19 9:00 am (10/25/19 at 9am with Dennise at [facility] 11/02/19 at 9 am with Jose J by phone) Vielka Cerrato MD [Primary Care Provider] - 1-2 days Activity/Diet/Wound Care/Special Instructions: Activity and diet as tolerated. Avoid the use of street drugs and alcohol. Take all medications as prescribed. When you are in need of refills on your medications please contact your medical provider and/or outpatient psychiatrist to have this done. Please go to scheduled outpatient appointment for aftercare treatment. If symptoms return or become worse, call the crisis line at and/or go to the nearest emergency room for evaluation Discharge Disposition: HOME SELF-CARE
[2019-10-20 13:23] VITALS: TEMP 98.6
== END 2019-10-20 17:35 | disposition home or self-care (01) | DRG 885 ==
LOC: EC 04:57 → 3MHU 12:19
PROVIDERS: ADMIT Psychiatry & Neurology Psychiatry; ATTEND Psychiatry & Neurology Psychiatry
DX: F31.9 Bipolar disorder, unspecified (principal); R45.851 Suicidal ideations; Z91.14 Patient's other noncompliance with medication regimen; F15.10 Other stimulant abuse, uncomplicated; F43.10 Post-traumatic stress disorder, unspecified; F17.210 Nicotine dependence, cigarettes, uncomplicated; F41.0 Panic disorder [episodic paroxysmal anxiety]; R45.87 Impulsiveness; E66.01 Morbid (severe) obesity due to excess calories; I25.2 Old myocardial infarction; Z68.35 Body mass index [BMI] 35.0-35.9, adult; Z79.899 Other long term (current) drug therapy; Z56.0 Unemployment, unspecified; Z88.5 Allergy status to narcotic agent; Z81.8 Family history of other mental and behavioral disorders
CPT/HCPCS: 80053; 82075; 99285

== ENCOUNTER 2019-11-16 11:06 | Inpatient (IN) | payer MEDICAID, OTHER ==
--- NOTE | 2019-11-16 11:50 | ED ---
Psych HPI - General Source: EMS Mode of arrival: EMS <Katie Coffman - Last Filed: 11/16/19 11:48> <Shadi Wetzel - Last Filed: 11/16/19 14:40> - General Chief Complaint: Psychiatric Symptoms Stated Complaint: Mental Health Time Seen by Provider: 11/16/19 11:08 - History of Present Illness Initial Comments: Patient is a 49-year-old male presenting to the emergency department via police escort for psychiatric evaluation. Police report that they were called by patient's [id number] stating that patient was suicidal and had a plan to "suicide by copier operator." Patient states he was actually on the phone with his counselor when police arrived at his house. Patient denies any suicidal or homicidal thoughts at this time. He states he is currently going through a divorce with his , and he believes the 's family did this to him on purpose. Patient states he has been seen in the same counselor for many years now, always keeps appointments, is currently receiving medication. Patient denies any alcohol or drug use. He denies any pain today. He has no further complaints. (Katie Coffman) - Related Data Previous Rx's Medication Instructions Recorded ARIPiprazole IM [Abilify Maintena] 400 mg IM QMONTH #1 vial 10/20/19 ARIPiprazole [Abilify] 10 mg PO HS 14 Days #14 tab 10/20/19 Acetaminophen Tab [Tylenol] 650 mg PO Q4HR PRN tab 10/20/19 Allergies Allergy/AdvReac Type Severity Reaction Status Date / Time codeine Allergy Severe Dyspnea Verified 11/16/19 12:00 Review of Systems ROS Other: All systems not noted in ROS Statement are negative. <Katie Coffman - Last Filed: 11/16/19 11:48> ROS Other: All systems not noted in ROS Statement are negative. <Shadi Wetzel - Last Filed: 11/16/19 14:40> ROS Statement: Those systems with pertinent positive or pertinent negative responses have been documented in the HPI. Past Medical History Past Medical History: Myocardial Infarction (ID) Additional Past Medical History / Comment(s): Abscess Last Myocardial Infarction Date:: 2016 History of Any Multi-Drug Resistant Organisms: None Reported Past Surgical History: No Surgical Hx Reported Past Psychological History: Anxiety, Depression, Panic Disorder Smoking Status: Current every day smoker Past Alcohol Use History: None Reported Past Drug Use History: None Reported <Katie Coffman - Last Filed: 11/16/19 11:48> General Exam Limitations: no limitations <MeghnaKatie Jelena - Last Filed: 11/16/19 11:48> - General Exam Comments Initial Comments: GENERAL: Patient is well-developed and well-nourished. Patient is nontoxic and in no acute distress. HEAD: Atraumatic, normocephalic. EYES: Pupils equal round and reactive to light, extraocular movements intact, sclera anicteric, conjunctiva are normal. Eyelids were unremarkable. ENT: TMs normal, nares patent, oropharynx clear without exudates. Moist mucous membranes. NECK: Normal range of motion, supple without lymphadenopathy or JVD. LUNGS: Unlabored respirations. Breath sounds clear to auscultation bilaterally and equal. No wheezes rales or rhonchi. HEART: Regular rate and rhythm without murmurs, rubs or gallops. ABDOMEN: Soft, nontender, normoactive bowel sounds. No guarding, no rebound. No masses appreciated. : Deferred MUSCULOSKELETAL: Normal extremities with adequate strength and normal range of motion, no pitting or edema. No clubbing or cyanosis. NEUROLOGICAL: Patient is alert and oriented x 3. Motor and sensory are also intact. Cranial nerves II through XII grossly intact. Symmetrical smile. Normal speech, normal gait. PSYCH: Normal mood, normal affect. SKIN: Warm, Dry, normal turgor, no rashes or lesions noted. (Katie Coffman) Course Vital Signs 11/16/19 11:15 Temperature 98.1 F Pulse Rate 93 Respiratory 17 Rate Blood Pressure 150/86 O2 Sat by Pulse 100 Oximetry Medical Decision Making <Shadi Wetzel - Last Filed: 11/16/19 14:40> - Medical Decision Making Patient was seen by mental health services with plan for admission. I did reevaluate patient. Patient does not recall suicidal statements. Patient was brought in by police and EMS. Petition has specific suicidal statement made. Patient admits to being depressed. Positive clinical certificate completed. (Shadi Wetzel) Disposition <Katie Coffman - Last Filed: 11/16/19 11:48> Is patient prescribed a controlled substance at d/c from ED?: No Decision Time: 14:40 <Shadi Wetzel - Last Filed: 11/16/19 14:40> Clinical Impression: Depression, Suicidal ideation Disposition: TRANSFER TO PSYCH HOSP/UNIT Referrals: Serafin Jones MD [Primary Care Provider] - 1-2 days
[2019-11-16] MEDS ORDERED: LORazepam 1 MG TAB PO PRN (18:31)
[2019-11-16] MEDS ORDERED: ZIPRASIDONE 20 MG VIAL IM PRN (18:31)
[2019-11-16] MEDS ORDERED: MAGNESIUM HYDROXIDE 2,400 MG/10 ML CUP PO PRN (18:31)
[2019-11-16] MEDS ORDERED: MAG HYDROX/AL HYDROX/SIMETH 30 ML CUP PO PRN (18:31)
[2019-11-16] MEDS ORDERED: ACETAMINOPHEN TAB 325 MG TAB PO PRN (18:31)
[2019-11-16] MEDS ORDERED: ARIPiprazole 10 MG TAB PO SCH (21:00)
[2019-11-17 08:08] LABS: ALT 26 U/L (4-49); AST 31 U/L (17-59); African American GFR (CKD) >90 (>60 ml/min/1.73 sqM); Albumin 4.2 g/dL (3.5-5.0); Alkaline Phosphatase 86 U/L (38-126); Anion Gap 6 mmol/L; Blood Urea Nitrogen 15 mg/dL (9-20); Calcium 9.1 mg/dL (8.4-10.2); Carbon Dioxide 29 mmol/L (22-30); Chloride 104 mmol/L (98-107); Glucose 91 mg/dL (74-99); Non-African American GFR(CKD) >90 (>60 ml/min/1.73 sqM); Potassium 4.3 mmol/L (3.5-5.1); Sodium 139 mmol/L (137-145); Total Bilirubin 0.7 mg/dL (0.2-1.3); Total Protein 7.1 g/dL (6.3-8.2)
[2019-11-17] MEDS: NICOTINE 14MG/24HR PATCH TRANSDERM SCH (10:14)
[2019-11-17] MEDS ORDERED: ARIPiprazole IM SYRINGE 400 MG (NO CHARGE) PHARMACY STOCK IM ONE (10:40)
--- NOTE | 2019-11-17 12:19 | HP ---
HISTORY AND PHYSICAL DATE OF ADMISSION: 11/16/2019. DATE OF EVALUATION: 11/17/2019 IDENTIFYING DATA: The patient is a 49, male who was currently from his . He is unemployed and has 2 children. The patient was brought to the ER on pickup order. HISTORY OF PHYSICAL EXAMINATION: Patient was recently discharged from the hospital end of September with a plan to follow up with [facility] and to continue on Abilify injection. Also, he was instructed to avoid using any stimulant. According to the petition filed by his [id number], she stated that the patient is suicidal and he stated that he will let the classified copy control clerk kill him. According to the initial assessment when he came to the ER, he stated that he was in his house with his , 's sister and his [id number] and they did ask him to leave the house as his is getting upset, so he called his cousin and he took him to the [facility]. Later on, he called his again and he was upset and angry, then he called his counselor at [facility] Jose J and his counselor was concerned about him as the patient was very agitated and angry. Based on this, his clhelt-fi-ama who did file the petition saying that the patient is suicidal, saying that he was" suicide by classified copy control clerk." It is meaning that he wanted the police to shoot him. Today when I saw him, he denied any suicidal or homicidal ideation. He was not agitated or angry. He stated that he knows that he has been for 8 years and his filing for divorce and he needs to find some place else to stay instead of the hotel. He stated that yesterday he said this, that he wanted to be suicide by classified copy control clerk, but today he denied any. He denied any sleeping or appetite problem. He denied any feeling of hopeless or helpless. According to the initial evaluation, they stated that the patient has poor impulse control and he is easily agitated. PAST PSYCHIATRIC HX: The, patient was here recently under Dr. Suh and he was discharged on October 19 with Abilify 400 mg IM every 4 weeks. From the record, it seems to me that the patient had history of major depression, recurrent. History of PTSD and his last hospitalization prior of September 2019 was 9 years ago. There is no previous suicidal attempt in the past. Patient has been seen by counselor and provider at [facility]. MEDICAL HISTORY: Allergy to CODEINE. His vital signs, temperature 97.0, pulse 80, respiration 18, blood pressure 131/85, pulse ox is 98. No urine drug screen done at this admission to see if the patient still using methamphetamine or not. SUBSTANCE ABUSE HISTORY: Patient stated that he has been using methamphetamine here and there. In the emergency room, he stated that he did not use it for 4 weeks since he left the hospital. However, with me, he stated that he did use it 4 days ago. He denied any chemical dependency rehab. FAMILY PSYCHIATRIC HISTORY: Patient's son has autism. SOCIAL HISTORY: The patient is currently from his of 8 years and he has 2 children. He dropped out at 11th grade. He was in special education. LEGAL PROBLEM: He denies any legal problem and he is not on probation. MENTAL STATUS EXAMINATION: Patient is overweight male, not agitated. He was cooperative even he did agree to sign voluntary admission. His speech is coherent, not pressured. The patient stated mood "I am frustrated because I am back here." Affect is constricted. The patient denied having any homicidal or suicidal ideation, intent, or plan. Patient denied any visual hallucination. Denied any auditory hallucination. There is no evidence of any delusional thinking. His thought process is very concrete. He is alert, oriented x3. Memory is grossly intact. Insight and judgment are limited. INTELLECTUAL FUNCTION: It is below average. STRENGTHS AND WEAKNESS: Strengths: The patient is resilient. Weakness: The patient is still using methamphetamine. DIAGNOSIS: 1. Bipolar disorder, depressed. 2. History of PTSD. 3. Methamphetamine use disorder 4. Nicotine dependence. PLAN: The patient is admitted under voluntary status to the mental health unit as he did sign voluntary admission. Also, he did sign medication consent. Today he is due for Abilify injection 400 mg. Will continue Ativan and geodon p.r.n. for agitation and aggression. The patient will participate in group therapy, medical doctor to perform H and P and medical evaluation. dry yard worker onboard for discharge planning. MMODL / IJN: [id number] / JANKI
[2019-11-17] MEDS ORDERED: ACETAMINOPHEN TAB 325 MG TAB PO PRN (12:38)
--- NOTE | 2019-11-17 15:39 | CONS ---
CONSULTATION CHIEF COMPLAINT: Depression and aggressive thoughts and expressions. HISTORY OF PRESENT ILLNESS: This is another admission for this 47-year-old white male who is known to have bipolar depression and possible schizoaffective disorder. He apparently became abusive, violent and threatening, and he was brought to the emergency room and was admitted. He states that he has been on his medications. He takes Wellbutrin, trazodone and Abilify. REVIEW OF SYSTEMS: He denies any headaches, difficulty with vision or hearing, chest pain, shortness of breath, abdominal pain, nausea, melena, hematochezia, renal disease, hematuria, dysuria, frequency, urgency, diabetes, etc. Past medical history, family history, and personal and social histories history reveal that he is ALLERGIC TO CODEINE. He has had no prior surgery. He used to smoke. He does not drink. PHYSICAL EXAMINATION: Blood pressure is 126/80 with a pulse of 82, respirations 16. He is afebrile. In general he appeared to be slightly overweight and in no acute distress. Skin color is normal. Skin is warm and dry. Lymph nodes are not enlarged. Head, ears, eyes, nose, mouth and throat are normal. Chest is clear. Cardiac exam is normal. Abdomen is soft, nontender. Extremities are normal. Neurologically he is intact. He is awake, alert and oriented and communicative. IMPRESSION: 1. Major depression. 2. Bipolar depression. 3. History of attention deficit hyperactivity disorder. RECOMMENDATIONS: None at this time. He has no obvious medical problems or complaints. MMODL / IJN: [id number] /
[2019-11-17 16:01] LABS: Hemoglobin A1C 5.6 % (4.0-6.0)
[2019-11-17] MEDS ORDERED: BENZOCAINE/MENTHOL LOZENG 1 EACH LOZENGE MUCOUS MEM PRN (21:37)
[2019-11-18 07:24] VITALS: RESP 16
[2019-11-18] MEDS: NICOTINE 14MG/24HR PATCH TRANSDERM SCH (10:20)
--- NOTE | 2019-11-18 23:18 | P.PN ---
Progress Note - Text Progress Note Date: 11/18/19 Subjective: Patient was seen today as a cross coverage for Dr. Mancilla. The patient was evaluated, chart reviewed, case discussed with the treatment team. Patient reports fair sleep, and appetite was reported as "fine". Patient has been going to some groups and other unit activities. The patient is compliant with his medications and denies any adverse reactions. Patient reports improvement of his depression and minimizes depressed mood, lack of motivation or interest. Denies any S/H ideation. Denies any hallucinations, or severe mood swings. Denies any manic symptoms. No report of physical symptoms. Objective: Vitals has been reviewed. Mental status examination; Appearance: The patient appears stated age, adequately groomed and dressed, no specific features. Gait/posture: Normal gait, Normal arm swinging: No abnormal movements. Attitude and behavior: engaged, cooperative, eye contact. Motor activity: Normal psychomotor activity Speech: Normal rate, tone. Mood: Anxious Affect: Constricted Thought form: goal-directed, linear, coherent. Thought content: Non-delusional, denies suicidal thoughts, denies homicidal thoughts, denies intentions or plans. Perception: Denies any auditory or visual hallucinations Attention: No impairment. Orientation: Patient patient was fully oriented to time place person and situation. Insight: Patient has fair insight about his psychiatric disorder. Judgment: Patient has fair judgment about his psychiatric treatment. Assessment: Bipolar disorder, depressive episode PTSD by history Methamphetamine use disorder, mild Nicotine use disorder moderate. Plan: Continue inpatient level of care due to need for further stabilization. Precautions: Continue 15 minutes check for safety. Consider medical consultation if any acute medical issues arise. Provide the patient individual, group therapy, substance use disorder counseling to give better insight and learn coping skills. Medications: Abilify maintena 400 mg IM/ 4 weeks last given 11/16/19 Continue PRN psych medications Continue non-psychiatric medications for management of co-morbid medical problems. Discharge patient to OUTPATIENT services upon a stabilization
[2019-11-19] MEDS: NICOTINE 14MG/24HR PATCH TRANSDERM SCH (09:12)
[2019-11-19] MEDS ORDERED: hydrOXYzine pamoate 25 MG CAP PO PRN (13:09)
--- NOTE | 2019-11-19 13:09 | P.PN ---
Progress Note - Text Progress Note Date: 11/19/19 Subjective: Patient was seen today as a cross coverage for Dr. Mancilla. The patient was evaluated, chart reviewed, case discussed with the treatment team. Patient reports feeling stable emotionally, and he denies depression, anxiety, or mood swings. He denies any suicidal or homicidal ideation, hallucinations, and no delusions could be elicited. No manic symptoms have been reported or noticed. Patient was seen attending more groups today, and he reports fair appetite and sleep. Patient reports continued to have anxiety attacks and asking for medication to help as needed. Patient is compliant with his psychiatric medications and he denies any side effects. Objective: Vitals has been reviewed. Mental status examination; Appearance: The patient appears stated age, adequately groomed and dressed, no specific features. Gait/posture: Normal gait, Normal arm swinging: No abnormal movements. Attitude and behavior: engaged, cooperative, eye contact. Motor activity: Normal psychomotor activity Speech: Normal rate, tone. Mood: Anxious Affect: Constricted Thought form: goal-directed, linear, coherent. Thought content: Non-delusional, denies suicidal thoughts, denies homicidal thoughts, denies intentions or plans. Perception: Denies any auditory or visual hallucinations Attention: No impairment. Orientation: Patient patient was fully oriented to time place person and situation. Insight: Patient has fair insight about his psychiatric disorder. Judgment: Patient has fair judgment about his psychiatric treatment. Assessment: Bipolar disorder, depressive episode PTSD by history Methamphetamine use disorder, mild Nicotine use disorder moderate. Plan: Continue inpatient level of care due to need for further stabilization. Precautions: Continue 15 minutes check for safety. Consider medical consultation if any acute medical issues arise. Provide the patient individual, group therapy, substance use disorder counseling to give better insight and learn coping skills. Medications: Abilify maintena 400 mg IM/ 4 weeks last given 11/16/19 Continue PRN psych medications including Vistaril for anxiety Continue non-psychiatric medications for management of co-morbid medical problems. Discharge patient to OUTPATIENT services upon a stabilization
[2019-11-20] MEDS: NICOTINE 14MG/24HR PATCH TRANSDERM SCH (08:46)
--- NOTE | 2019-11-20 09:54 | P.PN ---
Progress Note - Text Progress Note Date: 11/20/19 I did review medical records ,I discussed case in team meeting ,I did interview patient I reviewed medical consult, Did qa reviewer note from 11/16 ((11/17/19 21:46 - Nurse Note by Denis Calvo [facility] Num: [id number] : 1970 Patient Age: [address] Jones that patient had a choking episode that resulted in Mental Health tech performing heimlich maneuver/abdominal thrusts during wrap up group at approximately 20:45. It was reported that small piece of food was dislodged after 3 abdominal thrusts, and small amount of emesis was noted. Pt. reports that he did not fully chew and swallowed the chip. No visible airway obstruction noted, Pulse Ox 99% room airway, vitals: 145/93, pulse 113. Pt. reports he was short of breath during the episode but is no longer SOB, feels relief, but is extremely anxious and "shaken up." Pt. able to swallow effectively, uvula rises on midline, redness noted to pharyngeal area but no open skin. Patient's trachea is midline, no pain or swelling noted. Pt. reports that his throat does hurt however. Dr. 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 Discussed with him sleep hygiene and option to add Trazodone but patient refused,he agreed to try Melatonin Mental status examination; Appearance: The patient appears stated age, adequately groomed and dressed, no specific features. Gait/posture: Normal gait, tremors in both hands . Attitude and behavior: engaged, cooperative, eye contact. Motor activity: Normal psychomotor activity Speech: Normal rate, tone. Mood: Anxious Affect: Constricted Thought form: goal-directed, linear, coherent. Thought content: Non-delusional, denies suicidal thoughts, denies homicidal thoughts, denies intentions or plans. Perception: Denies any auditory or visual hallucinations Orientation: Patient patient was fully oriented to time place person and situation. Insight: Patient has fair insight about his psychiatric disorder. Judgment: Patient has fair judgment about his psychiatric treatment Clinical Problems:Schizoaffective,bipolar type,,Meth use disorder poor compliance with medications Plan: Continue inpatient.,add Melatonin ,encourage participation in milie
[2019-11-20] MEDS ORDERED: MELATONIN 3 MG TABLET PO SCH (21:00)
[2019-11-21 04:53] VITALS: BP 138/76; PULSE 74; TEMP 98.2
[2019-11-21] MEDS: NICOTINE 14MG/24HR PATCH TRANSDERM SCH (09:50)
--- NOTE | 2019-11-21 11:23 | DS ---
DISCHARGE SUMMARY DATE OF ADMISSION: 11/16/2019. DATE OF DISCHARGE: 11/21/2019. PLATE PAINTER APPRENTICE: Dr. Serafin Jones for H and P and medical management. DISCHARGE DIAGNOSES: 1. Bipolar disorder, mixed, without psychotic features. 2. Methamphetamine use disorder. 3. History of PTSD. 4. Nicotine dependence. HISTORY OF PRESENT ILLNESS: The patient is 49 male who is currently from his . He was brought to the emergency room on pickup order. The patient was recently in our unit and he was discharged end of September with instruction to avoid using any stimulant. According to the petition filed by his [id number]-ehi, stated that the patient is suicidal and he is angry, agitated. Even the patient tried to call his counselor at [facility] who was concerned about the patient's safety. For complete admission note, please refer to my history and physical exam dictated on November 16. HOSPITAL COURSE: The patient was admitted on voluntary basis and as I did let the patient to sign in and he did not object this and he was very cooperative with me. He saw Dr. Serafin Jones that he gives the impression that the patient has history of bipolar and attention deficit and he stated there is no medical problem at that time. At the time of his admission, patient refused to give his urine for urine drug screen and even he stated to the ER nurses that he did not use any methamphetamine for 4 weeks. However, during my session with him, he stated that he did use methamphetamine with his just 1 or 2 days prior to his admission. The patient stated that he was staying with his mother after the discharge from this unit in September for 2 weeks, then he decided to move back with his , according to him to try to reconcile but it seems that he did want to use methamphetamine with her. At the time of admission, he did receive Abilify Maintena injection 400 mg. It was due November 16. During his stay here, he is always up through the night and is sleeping during day time saying that he used to work in a factory at midnight shift and he has been having trouble sleeping at night, so I did add melatonin 6 mg at bedtime that it did restore his sleep. One day prior to his discharge, patient did attend most of the group therapy. He was interacting with the other patient and he stated that he slept with the melatonin between 5-6 hours. I did discuss with the patient the fine tremor that he has in both hands, especially when he is eating and signing his name, it is very obvious that he has tremor. He stated that he has been having this even before he started any psychotropic medication since young age, and he was referred by a neurologist who told him that he cannot give him anything for this as it will interact with his psychotropic medication. Patient was compliant with our treatment recommendation and he denied any side effects from the Abilify throughout the hospital course. Patient spoke about ongoing stressor that he has 19 year old son who has autism and even he does not see and he is living with the patient's mother who has custody of his son. Throughout his hospitalization, patient insight has been improved and he stated that he will not use any methamphetamine and he will avoid any people using methamphetamine. At the time of the discharge, he denied any suicidal, homicidal ideation, intent, or plan. He denied any psychotic feature. He denied any access to guns or weapons. As I did discuss with him, that he has addiction to methamphetamine to be referred to chemical dependency, but the patient declined inpatient substance abuse rehab and he stated that he will quit the methamphetamine use on his own. MENTAL STATUS EXAMINATION: At the time of the discharge, the patient appears his stated age. He is cooperative, pleasant. There is no psychomotor agitation. He was able to sit throughout the interview. Speech is spontaneous, coherent. His stated mood "much better." His affect is appropriate to thought content. He denied having any suicidal or homicidal ideation, intent, or plan. He denied having any auditory or visual hallucination. He denied having any delusional thinking. His thought content is concrete and he was alert, oriented x3. His insight and judgment improved. DIAGNOSTIC IMPRESSION: 1. Bipolar disorder, mixed. 2. Methamphetamine use disorder. 3. History of PTSD. 4. Nicotine dependence. PLAN OF TREATMENT: Patient will continue on Abilify Maintena long-acting injection and his next dose of 400 mg IM, it will be due December 15, 2019. Patient was referred to [facility] to see counselor for dual diagnosis. Patient is not currently an imminent threat to himself or others. Patient verbalized understanding and agrees that he will not use any methamphetamine as it is affecting his mental status. casino gaming worker will manage for patient to followup appointment with [facility] for psychiatric care. Also patient to see his primary care physician for followup. The patient was informed and educated about the adverse effect of any recreational or illicit drugs on his physical and mental health and he did verbally agree and understood it. MMODL / IJN: [id number] /
== END 2019-11-21 12:59 | disposition home or self-care (01) | DRG 885 ==
LOC: EC 11:06 → 3MHU 16:17
PROVIDERS: ADMIT Psychiatry & Neurology Psychiatry; ATTEND Psychiatry & Neurology Psychiatry
DX: F31.60 Bipolar disorder, current episode mixed, unspecified (principal); R45.851 Suicidal ideations; F41.0 Panic disorder [episodic paroxysmal anxiety]; F43.10 Post-traumatic stress disorder, unspecified; I25.2 Old myocardial infarction; F90.1 Attention-deficit hyperactivity disorder, predominantly hyperactive type; F15.10 Other stimulant abuse, uncomplicated; F17.210 Nicotine dependence, cigarettes, uncomplicated; Z63.5 Disruption of family by separation and divorce; E66.3 Overweight; Z68.34 Body mass index [BMI] 34.0-34.9, adult; Z81.8 Family history of other mental and behavioral disorders; Z88.5 Allergy status to narcotic agent; Z91.14 Patient's other noncompliance with medication regimen
CPT/HCPCS: 80053; 82075; 83036; 99284

== ENCOUNTER 2019-11-25 05:58 | Emergency (ER) | payer OTHER ==
[2019-11-25 06:09] VITALS: RESP 18
--- NOTE | 2019-11-25 06:09 | ED ---
Chest Pain HPI - General Stated Complaint: Chest Pain Time Seen by Provider: 11/25/19 06:01 Limitations: no limitations - History of Present Illness Initial Comments: This patient is a 49-year-old man who presents to be evaluated for chest pain that had developed within the past 1-2 hours. The patient states that he was in the process of walking to his mother's home to see if she would let him sleep there. He states that earlier he had smoked methamphetamine with an associate of his. Complaint: chest pain -: hour(s) Onset: during exertion Pain Location: substernal Pain Radiation: LUE Severity: moderate Quality: heaviness Consistency: constant Improves With: nothing Worsens With: nothing Treatments Prior to Arrival: none - Related Data Previous Rx's Medication Instructions Recorded Acetaminophen Tab [Tylenol] 650 mg PO Q4HR PRN tab 10/20/19 ARIPiprazole IM [Abilify Maintena] 400 mg IM QMONTH #1 vial 11/21/19 Melatonin 6 mg PO HS 30 Days tablet 11/21/19 hydrOXYzine pamoate [Vistaril] 25 mg PO TID PRN #21 cap 11/21/19 Allergies Allergy/AdvReac Type Severity Reaction Status Date / Time codeine Allergy Severe Dyspnea Verified 11/25/19 06:09 Review of Systems ROS Statement: Those systems with pertinent positive or pertinent negative responses have been documented in the HPI. ROS Other: All systems not noted in ROS Statement are negative. Constitutional: Denies: fever, chills Respiratory: Denies: cough, dyspnea Cardiovascular: Reports: chest pain, palpitations. Denies: orthopnea, edema, syncope Gastrointestinal: Denies: abdominal pain, nausea, vomiting, diarrhea, melena, hematochezia Genitourinary: Denies: dysuria, hematuria Musculoskeletal: Denies: back pain Skin: Denies: rash Neurological: Denies: headache, weakness Psychiatric: Reports: anxiety EKG Findings - EKG Results: EKG: interpreted by DAPNHE, sinus rhythm, normal axis, normal QRS, normal ST/T EKG shows: tachycardia (Rate 108 bpm) Past Medical History Past Medical History: Myocardial Infarction ([place]) Additional Past Medical History / Comment(s): Abscess Last Myocardial Infarction Date:: 2016 History of Any Multi-Drug Resistant Organisms: None Reported Past Surgical History: No Surgical Hx Reported Past Psychological History: Anxiety, Depression, Panic Disorder Smoking Status: Current every day smoker Past Alcohol Use History: None Reported Past Drug Use History: None Reported General Exam General appearance: alert, in no apparent distress Head exam: Present: atraumatic, normocephalic Eye exam: Present: normal appearance. Absent: scleral icterus, conjunctival injection ENT exam: Present: normal oropharynx Neck exam: Present: normal inspection Respiratory exam: Present: normal lung sounds bilaterally. Absent: respiratory distress, wheezes, rales, rhonchi, stridor Cardiovascular Exam: Present: normal rhythm, tachycardia, normal heart sounds. Absent: systolic murmur, diastolic murmur, rubs, gallop GI/Abdominal exam: Present: soft. Absent: distended, tenderness, guarding, rebound, rigid, mass Extremities exam: Present: normal inspection, normal capillary refill. Absent: pedal edema, calf tenderness Back exam: Present: normal inspection. Absent: CVA tenderness (R), CVA tenderness (L) Neurological exam: Present: alert Skin exam: Present: warm, dry, intact, normal color. Absent: rash Course Vital Signs 11/25/19 11/25/19 06:06 07:12 Temperature 98 F Pulse Rate 100 105 H Respiratory 18 18 Rate Blood Pressure 133/87 123/82 O2 Sat by Pulse 98 98 Oximetry Disposition Clinical Impression: Chest pain Disposition: HOME SELF-CARE Condition: Good Instructions (If sedation given, give patient instructions): Chest Pain (ED) Is patient prescribed a controlled substance at d/c from ED?: No Referrals: Serafin Jones MD [Primary Care Provider] - 1-2 days
[2019-11-25] MEDS ORDERED: LORazepam 2 MG/ML INJ IV STA (06:31)
[2019-11-25 06:49] LABS: Basophils # (A) 0.1 k/uL (0-0.2); Basophils % (A) 1 %; Eosinophils # (A) 0.2 k/uL (0-0.7); Eosinophils % (A) 2 %; HGB 13.3 gm/dL (13.0-17.5); Lymphocytes # (A) 2.4 k/uL (1.0-4.8); Lymphocytes % (A) 26 %; MCH 28.9 pg (25.0-35.0); MCHC 33.2 g/dL (31.0-37.0); MCV 87.1 fL (80.0-100.0); Mean Platelet Volume 8.3; Monocytes # (A) 0.4 k/uL (0-1.0); Monocytes % (A) 4 %; Neutrophils # (A) 5.9 k/uL (1.3-7.7); Neutrophils % (A) 66 %; Platelet Count 242 k/uL (150-450); RBC 4.59 m/uL (4.30-5.90); RDW 13.5 % (11.5-15.5)
[2019-11-25 06:58] LABS: INR 0.9 (<1.2); Partial Thromboplastin Time 24.2 sec (22.0-30.0); Prothrombin Time 9.7 sec (9.0-12.0)
[2019-11-25 07:09] LABS: ALT 28 U/L (4-49); AST 35 U/L (17-59); African American GFR (CKD) >90 (>60 ml/min/1.73 sqM); Albumin 3.8 g/dL (3.5-5.0); Alkaline Phosphatase 119 U/L (38-126); Anion Gap 8 mmol/L; Blood Urea Nitrogen 12 mg/dL (9-20); Calcium 8.5 mg/dL (8.4-10.2); Carbon Dioxide 26 mmol/L (22-30); Chloride 105 mmol/L (98-107); Glucose 103 mg/dL (74-99); Non-African American GFR(CKD) >90 (>60 ml/min/1.73 sqM); Potassium 3.8 mmol/L (3.5-5.1); Sodium 139 mmol/L (137-145); Total Bilirubin 0.5 mg/dL (0.2-1.3); Total Protein 6.8 g/dL (6.3-8.2)
--- NOTE | 2019-11-25 07:24 | XR ---
EXAMINATION TYPE: XR chest 2V DATE OF EXAM: 11/25/2019 COMPARISON: 08/17/2012 HISTORY: 49-year-old male with chest pain TECHNIQUE: PA and lateral views FINDINGS: The cardiomediastinal silhouette, aorta, and pulmonary vasculature are within normal limits. Mild int erstitial prominence as a chronic appearance. Otherwise, lungs and pleural spaces are clear. IMPRESSION: No acute cardiopulmonary process.
[2019-11-25 08:15] VITALS: BP 130/89; PULSE 99; TEMP 97.8
== END 2019-11-25 08:17 | disposition home or self-care (01) ==
LOC: EC 05:58
DX: R07.9 Chest pain, unspecified (principal); I25.2 Old myocardial infarction; F17.200 Nicotine dependence, unspecified, uncomplicated; F15.90 Other stimulant use, unspecified, uncomplicated; Z88.5 Allergy status to narcotic agent
CPT/HCPCS: 36415; 80053; 83735; 84484; 85025; 85610; 85730; 71046; 99285; 96374; J2060; 93005

== ENCOUNTER 2020-02-28 23:36 | Emergency (ER) | payer OTHER ==
[2020-02-28 23:41] VITALS: BP 123/80; PULSE 88; RESP 18; TEMP 98.4
--- NOTE | 2020-02-28 23:59 | ED ---
Psych HPI - General Chief Complaint: Psychiatric Symptoms Stated Complaint: Mental Health Time Seen by Provider: 02/28/20 23:43 Source: patient Mode of arrival: ambulatory - History of Present Illness Initial Comments: 49-year-old male with history of anxiety and depression presenting to the emergency department for psychiatric evaluation. Patient states he has had increased stress recently. States he is dealing with a divorce at the moment. Patient states that his ex- recently found out that she had HIV and now he is also concerned for the. Patient states he has had previous thoughts of suicide several years ago but is also having now. States he currently takes Abilify for his anxiety and depression. Denies any homicidal thoughts or ideations. Patient has no other complaints. - Related Data Previous Rx's Medication Instructions Recorded Acetaminophen Tab [Tylenol] 650 mg PO Q4HR PRN tab 10/20/19 ARIPiprazole IM [Abilify Maintena] 400 mg IM QMONTH #1 vial 11/21/19 Melatonin 6 mg PO HS 30 Days tablet 11/21/19 hydrOXYzine pamoate [Vistaril] 25 mg PO TID PRN #21 cap 11/21/19 Allergies Allergy/AdvReac Type Severity Reaction Status Date / Time codeine Allergy Severe Dyspnea Verified 03/01/20 23:00 Review of Systems ROS Statement: Those systems with pertinent positive or pertinent negative responses have been documented in the HPI. ROS Other: All systems not noted in ROS Statement are negative. Past Medical History Past Medical History: Myocardial Infarction ([place]) Additional Past Medical History / Comment(s): Abscess Last Myocardial Infarction Date:: 2016 History of Any Multi-Drug Resistant Organisms: None Reported Past Surgical History: No Surgical Hx Reported Past Psychological History: Anxiety, Depression, Panic Disorder Smoking Status: Former smoker Past Alcohol Use History: None Reported Past Drug Use History: None Reported General Exam Limitations: no limitations General appearance: alert, in no apparent distress Head exam: Present: atraumatic, normocephalic, normal inspection Eye exam: Present: normal appearance, PERRL, EOMI Pupils: Present: normal accommodation ENT exam: Present: normal exam, normal oropharynx, mucous membranes moist, TM's normal bilaterally, normal external ear exam Neck exam: Present: normal inspection, full ROM. Absent: tenderness Respiratory exam: Present: normal lung sounds bilaterally. Absent: respiratory distress, wheezes, rales Cardiovascular Exam: Present: regular rate, normal rhythm, normal heart sounds Extremities exam: Present: normal inspection, full ROM, normal capillary refill. Absent: tenderness, pedal edema, joint swelling, calf tenderness Back exam: Present: normal inspection, full ROM. Absent: tenderness, CVA tenderness (R), CVA tenderness (L) Neurological exam: Present: alert, oriented X3, normal gait Psychiatric exam: Present: normal affect, normal mood. Absent: depressed, agitated Skin exam: Present: warm, dry, intact, normal color Course Vital Signs 02/28/20 23:38 Temperature 98.4 F Pulse Rate 88 Respiratory 18 Rate Blood Pressure 123/80 O2 Sat by Pulse 98 Oximetry Medical Decision Making - Medical Decision Making Patient signed off to Dr Pro - Lab Data Lab Results 02/29/20 Range/Units 00:05 Urine Opiates Screen Not Detected (NotDetected) Ur Oxycodone Screen Not Detected (NotDetected) Urine Methadone Screen Not Detected (NotDetected) Ur Propoxyphene Screen Not Detected (NotDetected) Ur Barbiturates Screen Not Detected (NotDetected) U Tricyclic Antidepress Not Detected (NotDetected) Ur Phencyclidine Scrn Not Detected (NotDetected) Ur Amphetamines Screen Not Detected (NotDetected) U Methamphetamines Scrn Not Detected (NotDetected) U Benzodiazepines Scrn Not Detected (NotDetected) Urine Cocaine Screen Not Detected (NotDetected) U Marijuana (THC) Screen Not Detected (NotDetected) Disposition Clinical Impression: Adjustment reaction of adult life Disposition: HOME SELF-CARE Condition: Stable Instructions (If sedation given, give patient instructions): Depression (ED) Is patient prescribed a controlled substance at d/c from ED?: No Referrals: Serafin Jones MD [Primary Care Provider] - 1-2 days Time of Disposition: 02:32
[2020-02-29 00:46] LABS: Amphetamine Screen,Urine Not Detected (NotDetected); Barbiturate Screen,Urine Not Detected (NotDetected); Benzodiazepines Screen,Urine Not Detected (NotDetected); Cocaine Screen,Urine Not Detected (NotDetected); Methadone Screen, Urine Not Detected (NotDetected); Opiate Screen,Urine Not Detected (NotDetected); Oxycodone Screen, Urine Not Detected (NotDetected); Phencyclidine Screen,Urine Not Detected (NotDetected); Tricyclic Antidepressant,Urine Not Detected (NotDetected); Urn Cannabinoid Scrn Not Detected (NotDetected)
== END 2020-02-29 04:49 | disposition home or self-care (01) ==
LOC: EC 23:36
DX: F43.20 Adjustment disorder, unspecified (principal); I25.2 Old myocardial infarction; Z88.5 Allergy status to narcotic agent; Z87.891 Personal history of nicotine dependence
CPT/HCPCS: 80306; 82075; 99285

== ENCOUNTER 2020-03-01 22:50 | Inpatient (IN) | payer MEDICAID, OTHER ==
--- NOTE | 2020-03-01 23:18 | ED ---
Psych HPI - General Chief Complaint: Psychiatric Symptoms Stated Complaint: petition Time Seen by Provider: 03/01/20 23:02 Source: patient, police, RN notes reviewed, old records reviewed Mode of arrival: ambulatory - History of Present Illness Initial Comments: This is a 41-year-old male presents by PD under petition for psychiatric evaluation. Patient making suicidal thoughts and thoughts, patient himself history denied those threats here in the ER, patient was in ER 2 days ago for same MD Complaint: suicidal ideation, feels depressed -: unknown Associated Psychiatric Symptoms: depression, suicidal ideation History of same: Yes Quality: constant, intermittent Associated Symptoms: denies other symptoms Treatments Prior to Arrival: placed on mental health hold If Self Harm: admits thoughts of self harm - Related Data Previous Rx's Medication Instructions Recorded Acetaminophen Tab [Tylenol] 650 mg PO Q4HR PRN tab 10/20/19 ARIPiprazole IM [Abilify Maintena] 400 mg IM QMONTH #1 vial 11/21/19 Melatonin 6 mg PO HS 30 Days tablet 11/21/19 hydrOXYzine pamoate [Vistaril] 25 mg PO TID PRN #21 cap 11/21/19 Allergies Allergy/AdvReac Type Severity Reaction Status Date / Time codeine Allergy Severe Dyspnea Verified 03/01/20 23:00 Review of Systems ROS Statement: Those systems with pertinent positive or pertinent negative responses have been documented in the HPI. ROS Other: All systems not noted in ROS Statement are negative. Past Medical History Past Medical History: Myocardial Infarction ([place]) Additional Past Medical History / Comment(s): Abscess Last Myocardial Infarction Date:: 2016 History of Any Multi-Drug Resistant Organisms: None Reported Past Surgical History: No Surgical Hx Reported Past Psychological History: Anxiety, Depression, Panic Disorder Smoking Status: Former smoker Past Alcohol Use History: None Reported Past Drug Use History: None Reported General Exam Limitations: no limitations General appearance: alert, in no apparent distress Head exam: Present: atraumatic, normocephalic, normal inspection Eye exam: Present: normal appearance, PERRL, EOMI. Absent: scleral icterus, conjunctival injection, periorbital swelling ENT exam: Present: normal exam, mucous membranes moist Neck exam: Present: normal inspection. Absent: tenderness, meningismus, lymphadenopathy Respiratory exam: Present: normal lung sounds bilaterally. Absent: respiratory distress, wheezes, rales, rhonchi, stridor Cardiovascular Exam: Present: regular rate, normal rhythm, normal heart sounds. Absent: systolic murmur, diastolic murmur, rubs, gallop, clicks GI/Abdominal exam: Present: soft, normal bowel sounds. Absent: distended, tenderness, guarding, rebound, rigid Extremities exam: Present: normal inspection, full ROM, normal capillary refill. Absent: tenderness, pedal edema, joint swelling, calf tenderness Back exam: Present: normal inspection Neurological exam: Present: alert, oriented X3, CN II-XII intact Psychiatric exam: Present: normal affect, normal mood Skin exam: Present: warm, dry, intact, normal color. Absent: rash Course Vital Signs 03/01/20 22:58 Temperature 98.1 F Pulse Rate 100 Respiratory 18 Rate Blood Pressure 133/88 O2 Sat by Pulse 98 Oximetry - Reevaluation(s) Reevaluation #1: 03/02/20 00:24 Medical records reviewed 03/02/20 00:24 Medical clear for psychiatric evaluation Reevaluation #2: 03/02/20 00:24 Seen in ER 2 days ago for same complaints Medical Decision Making - Medical Decision Making 49 male seen in however psychiatry for suicidal thoughts. Patient be admitted for inpatient psychiatric evaluation and treatment Disposition Clinical Impression: Depression, Suicidal ideation, History of posttraumatic stress disorder (PTSD) Disposition: TRANSFER TO PSYCH HOSP/UNIT Condition: Fair Is patient prescribed a controlled substance at d/c from ED?: No Referrals: Serafin Jones MD [Primary Care Provider] - 1-2 days
[2020-03-02 00:43] LABS: Amphetamine Screen,Urine Not Detected (NotDetected); Barbiturate Screen,Urine Not Detected (NotDetected); Benzodiazepines Screen,Urine Not Detected (NotDetected); Cocaine Screen,Urine Not Detected (NotDetected); Methadone Screen, Urine Not Detected (NotDetected); Opiate Screen,Urine Not Detected (NotDetected); Oxycodone Screen, Urine Not Detected (NotDetected); Phencyclidine Screen,Urine Not Detected (NotDetected); Tricyclic Antidepressant,Urine Not Detected (NotDetected); Urn Cannabinoid Scrn Not Detected (NotDetected)
[2020-03-02] MEDS ORDERED: MAGNESIUM HYDROXIDE 2,400 MG/10 ML CUP PO PRN (01:21)
[2020-03-02] MEDS ORDERED: MAG HYDROX/AL HYDROX/SIMETH 30 ML CUP PO PRN (01:21)
[2020-03-02] MEDS ORDERED: ACETAMINOPHEN TAB 325 MG TAB PO PRN (01:21)
[2020-03-02] MEDS ORDERED: HALOPERIDOL LACTATE 5 MG/ML 1 ML VIAL IM PRN (01:25)
[2020-03-02] MEDS ORDERED: LORazepam 2 MG/ML INJ IM PRN (01:27)
[2020-03-02 07:03] LABS: Appearance,Urine Cloudy (Clear); Bacteria,Urine Rare /hpf; Bilirubin,Urine Negative (Negative); Blood,Urine Negative (Negative); Color,Urine Yellow; Glucose,Urine (UA) Negative (Negative); Ketones,Urine Negative (Negative); Leukocyte Esterase,Urine Large (Negative); Mucus,Urine Moderate /hpf; Nitrite,Urine Negative (Negative); PH, Urine 5.5 (5.0-8.0); Protein,Urine Trace (Negative); RBC,Urine 2 /hpf (0-5); Specific Gravity,Urine 1.028 (1.001-1.035); Squamous Epithelial Cell,Urine 5 /hpf (0-4); WBC,Urine 12 /hpf (0-5)
[2020-03-02] MEDS: NICOTINE 14MG/24HR PATCH TRANSDERM SCH (08:45)
--- NOTE | 2020-03-02 14:58 | P.HP ---
Psychiatric H&P - . H&P Date: 03/02/20 History & Physical: Allergies Allergy/AdvReac Type Severity Reaction Status Date / Time codeine Allergy Severe Dyspnea Verified 03/02/20 06:08 Vital Signs Temp 97.5 F L 03/02/20 13:00 Pulse 69 03/02/20 02:00 Resp 18 03/02/20 02:00 BP 147/63 03/02/20 02:00 Pulse Ox 97 03/02/20 01:50 Intake & Output 03/01/20 03/02/20 03/02/20 18:59 06:59 18:59 Weight 109.769 kg Laboratory Last Values Urine Color Yellow 03/02/20 00:17 Urine Appearance Cloudy (Clear) 03/02/20 00:17 Urine pH 5.5 (5.0-8.0) 03/02/20 00:17 Ur Specific [place] 1.028 (1.001-1.035) 03/02/20 00:17 Urine Protein Trace (Negative) H 03/02/20 00:17 Urine Glucose (UA) Negative (Negative) 03/02/20 00:17 Urine Ketones Negative (Negative) 03/02/20 00:17 Urine Blood Negative (Negative) 03/02/20 00:17 Urine Nitrite Negative (Negative) 03/02/20 00:17 Urine Bilirubin Negative (Negative) 03/02/20 00:17 Urine Urobilinogen 2.0 mg/dL (<2.0) 03/02/20 00:17 Ur Leukocyte Esterase Large (Negative) H 03/02/20 00:17 Urine RBC 2 /hpf (0-5) 03/02/20 00:17 Urine WBC 12 /hpf (0-5) H 03/02/20 00:17 Ur Squamous Epith Cells 5 /hpf (0-4) H 03/02/20 00:17 Urine Bacteria Rare /hpf (None) H 03/02/20 00:17 Urine Mucus Moderate /hpf (None) H 03/02/20 00:17 Urine Opiates Screen Not Detected (NotDetected) 03/02/20 00:17 Ur Oxycodone Screen Not Detected (NotDetected) 03/02/20 00:17 Urine Methadone Screen Not Detected (NotDetected) 03/02/20 00:17 Ur Propoxyphene Screen Not Detected (NotDetected) 03/02/20 00:17 Ur Barbiturates Screen Not Detected (NotDetected) 03/02/20 00:17 U Tricyclic Antidepress Not Detected (NotDetected) 03/02/20 00:17 Ur Phencyclidine Scrn Not Detected (NotDetected) 03/02/20 00:17 Ur Amphetamines Screen Not Detected (NotDetected) 03/02/20 00:17 U Methamphetamines Scrn Not Detected (NotDetected) 03/02/20 00:17 U Benzodiazepines Scrn Not Detected (NotDetected) 03/02/20 00:17 Urine Cocaine Screen Not Detected (NotDetected) 03/02/20 00:17 U Marijuana (THC) Screen Not Detected (NotDetected) 03/02/20 00:17 Coronavirus (PCR) Not Detected (Not Detectd) 03/02/20 00:17 03/02/20 14:47 IDENTIFYING DATA: Patient is a , unemployed, 49-year-old male was admitted for depression and suicidal ideation. HPI: Patient presented to the hospital on 03/01/2020 brought in by police after texting his ex- that he was going to kill himself. Patient was also present in the emergency department 2 days prior for the same reason. Patient reports that he has been feeling desperate and depressed his marriage fell through in August of this year. He states he has been a downward spiral since then. He reports symptoms of depression including irregular sleep, crying, isolation, as well as occasional suicidal thoughts. He reports that he would send these texts to his that he would hurt himself or kill himself with no actual intentions to do so. He states that he would do this just to grab her attention. In regards other mood symptoms, the patient is not reporting any significant symptoms of hypomania/joellen. He reports no increased goal directed behavior, mood swings, grandiosity, or increased energy. He does not currently endorse any significant symptoms of psychosis. He does report a history of auditory hallucinations and paranoia. He states that he Lasix (auditory hallucinations a couple weeks ago. She states that he would occasionally hear voices that tell him "to do impulsive things." Previously, the patient has been managed with Abilify maintain her, but the last time he received his IM dose was in October of this year. The patient reports that he has difficulty making it to his appointments at [facility] due to transportation issues. In regards to substance use, the patient reports no significant substance use at this time. He reports that he does not smoke, drink alcohol, use marijuana, or use any illicit drugs over the past 3 months. He does have a history of methamphetamine use. The patient does endorse significant history of trauma which she states occurred when he was a young child. He is currently not reporting any symptoms of hypervigilance, arousal, reexperiencing phenomenon. PAST PSYCHIATRIC HISTORY: Patient states that he has been previously diagnosed with depression and PTSD. He is only able to recall taking Zoloft and Abilify in the past. As his third psychiatric hospitalization on this unit this year. His previous admitted in September and October. At that he is supposed to follow with [facility] but has had difficulty doing so due to transportation issues. He reports one prior attempt at suicide 12 years ago by suicide by copy worker. PMH: History of AR ALLERGIES: Codeine CHEMICAL DEPENDENCY HISTORY: The patient reports abstaining from all substances including tobacco and alcohol over the past 3 months. He does have a history of methamphetamine use with the last use being months ago. FAMILY PSYCHIATRIC/SUBSTANCE USE HISTORY: Patient reports he has a teenage son with autism. SOCIAL HISTORY: Patient was born and raised in [place], [place]. His left grade education. He currently lives with his mother. He has 2 children with whom he does not have custody over. He is currently unemployed and has no source of income. He reports that he is trying to receive obtain his disabili ty. They're currently reports no legal problems. MENTAL STATUS EXAM: General Appearance: Patient appears to be stated age is alert, directable, and attempts to cooperate. Patient appears to have poor hygiene and grooming. He is disheveled and overweight. Behavior: Patient is seated without any agitated behavior. Speech: Patient's speech is fluent and nonpressured. Soft in volume. Mood/Affect: Patient reports their mood is depressed, affect is congruent and constricted. Suicidality/Homicidality: Patient is currently denying any suicidal or homicidal ideation, intention, and/or plan. Perceptions: Patient currently denies any auditory or visual hallucinations. Though content/process: There is no evidence of any delusional thought content and thought process is linear and goal-directed. Memory and concentration: AOX3, grossly intact for the purposes of this session. Can spell "WORLD" backwards Judgment and insight: poor STRENGTHS/WEAKNESSES: strength is that patient is has stable housing. Weakness is that patient is nonadherent with treatment and has poor coping skills. INTELLECT: Below average IMPRESSIONS: Mood disorder, unspecified History of posttraumatic stress disorder Methamphetamine use disorder PLAN: -Patient is admitted under involuntary status to [facility] for stabilization of psychiatric symptoms and safety. Patient was converted to voluntary admission. -Medications : Will start patient on Abilify 10 mg by mouth daily for mood augmentation. Patient last received his Abilify maintena 400 mg IM on 11/12/2019. Prozac 30 mg by mouth daily for depression/PTSD/anxiety -Ativan and Haldol PRN for agitation/aggression -Patient was counselled on substance abuse -Patient was informed of the risks, benefits and side effects of the medication and patient verbally consented to taking the medications. -Internal Medicine consult to perform medical evaluation and physical. -NRT - nicotine patch -SW on board for discharge planning. Encourage patient to participate in groups to work on coping skills.
[2020-03-02 17:54] LABS: Glucose,Whole Blood 163 mg/dL (75-99)
[2020-03-02 20:13] LABS: Glucose,Whole Blood 128 mg/dL (75-99)
[2020-03-03 07:50] LABS: Basophils % (A) 1 %; Eosinophils # (A) 0.1 k/uL (0-0.7); Eosinophils % (A) 2 %; HCT 44.2 % (39.0-53.0); HGB 15.2 gm/dL (13.0-17.5); Lymphocytes # (A) 2.3 k/uL (1.0-4.8); Lymphocytes % (A) 33 %; MCH 29.7 pg (25.0-35.0); MCHC 34.4 g/dL (31.0-37.0); MCV 86.3 fL (80.0-100.0); Mean Platelet Volume 7.3; Monocytes # (A) 0.3 k/uL (0-1.0); Monocytes % (A) 4 %; Neutrophils # (A) 4.1 k/uL (1.3-7.7); Neutrophils % (A) 59 %; Platelet Count 232 k/uL (150-450); RBC 5.12 m/uL (4.30-5.90); RDW 12.8 % (11.5-15.5)
[2020-03-03 07:53] LABS: Glucose,Whole Blood 202 mg/dL (75-99)
[2020-03-03 08:07] LABS: ALT 25 U/L (4-49); AST 33 U/L (17-59); African American GFR (CKD) >90 (>60 ml/min/1.73 sqM); Albumin 4.1 g/dL (3.5-5.0); Alkaline Phosphatase 85 U/L (38-126); Anion Gap 6 mmol/L; Blood Urea Nitrogen 15 mg/dL (9-20); Calcium 9.1 mg/dL (8.4-10.2); Carbon Dioxide 29 mmol/L (22-30); Chloride 105 mmol/L (98-107); Cholesterol 126 mg/dL (<200); Glucose 110 mg/dL (74-99); HDL Cholesterol 35 mg/dL (40-60); LDL Cholesterol,Calculated 74 mg/dL (0-99); Non-African American GFR(CKD) 88 (>60 ml/min/1.73 sqM); Potassium 4.8 mmol/L (3.5-5.1); Sodium 140 mmol/L (137-145); Total Bilirubin 0.5 mg/dL (0.2-1.3); Total Protein 7.3 g/dL (6.3-8.2); Triglycerides 83 mg/dL (<150)
[2020-03-03] MEDS: NICOTINE 14MG/24HR PATCH TRANSDERM SCH (08:51)
[2020-03-03] MEDS ORDERED: FLUoxetine HCL 10 MG CAP PO SCH (09:00)
[2020-03-03] MEDS ORDERED: ARIPiprazole 10 MG TAB PO SCH (09:00)
[2020-03-03] MEDS: metFORMIN 500 MG TAB PO SCH (11:11)
--- NOTE | 2020-03-03 12:27 | P.PN ---
Progress Note - Text Progress Note Date: 03/03/20 Interval history: Patient was seen things in his room and was directable and agreeable to speak with field underwriter. Patient reports that he feels good today. He is not reporting any suicidal or homicidal ideation, intent, and/or plan. He is not reporting any auditory or visual hallucinations. He has been taking his medications and is not reporting significant side effects. He states that he went to group this morning. He does spend most of his day in his room. The patient does express understanding that he needs to let go of his relationship with his ex-. He does report that he gets confused because she "plays mind games" and acts like they should be together some days and not other days. Mental status exam: General Appearance: Patient appears to be stated age is alert, directable, and cooperative. Appears disheveled. Wearing a marble T-shirt. Behavior: No agitated behavior. Patient is calm and directable Speech: Patient's speech is fluent and nonpressured. Mood/Affect: Mood is improving mildly, affect is congruent and constricted. Suicidality/Homicidality: Patient denies having any suicidal or homicidal ideation intent or plan. Perceptions: Patient denies any auditory or visual hallucinations. Though content/process: There is no evidence of any delusional thought content and thought process is linear and goal-directed. Memory and concentration: AOX3, grossly intact for the purposes of this session Judgment and insight: improving mildly Assessment/Plan: Continue with current diagnosis. Patient continues to meet criteria for inpatient psychiatric admission for symptom stabilization and safety. We'll increase his Abilify to 15 mg by mouth daily and his Prozac to 40 mg by mouth daily. Monitor for medication compliance and for any psychotropic medication side effects. Will continue to monitor ongoing response to treatment. Encouraged participation in milieu.
[2020-03-03 12:42] LABS: Glucose,Whole Blood 93 mg/dL (75-99)
[2020-03-03 17:56] LABS: Glucose,Whole Blood 171 mg/dL (75-99)
[2020-03-03 20:03] LABS: Glucose,Whole Blood 110 mg/dL (75-99)
--- NOTE | 2020-03-04 04:22 | CONS ---
CONSULTATION CHIEF COMPLAINT: Major depression. HISTORY OF PRESENT ILLNESS: This admission is for depression. I have not seen this gentleman since July of 2018. At that time, he was taking an antidepressant and antipsychotic. He has not been seen since. At that time, he had no other medical issues. He did have elevated liver function studies, but his hepatitis profile was negative. REVIEW OF SYSTEMS: Review of systems is unremarkable and he has not had any medical complaints. Past medical history, family history and personal and social histories are currently detailed in his admitting summary. He is known to be allergic to CODEINE. In the past, he was on vitamin D, Wellbutrin, trazodone and Abilify. He reports a history of sleep apnea. PHYSICAL EXAMINATION: Vital signs are normal. Skin is well hydrated and color is normal. Head, ears, eyes, nose and mouth were normal. Chest is clear. Cardiac exam is normal. Abdomen is soft, nontender without masses. Extremities: Normal. Neurologically, he is intact. IMPRESSION: 1. Major depression, depressive disorder with psychotic features. 2. Suicidal thoughts. RECOMMENDATIONS: None. MMODL / IJN: [id number] /
[2020-03-04 06:40] VITALS: TEMP 98
[2020-03-04 07:47] LABS: Glucose,Whole Blood 135 mg/dL (75-99)
[2020-03-04] MEDS: metFORMIN 500 MG TAB PO SCH (08:54)
[2020-03-04] MEDS: NICOTINE 14MG/24HR PATCH TRANSDERM SCH (08:54)
[2020-03-04] MEDS: FLUoxetine HCL 20 MG CAP PO SCH (08:55)
[2020-03-04] MEDS: ARIPiprazole 15 MG TAB PO SCH (08:55)
--- NOTE | 2020-03-04 11:55 | P.PN ---
Progress Note - Text Progress Note Date: 03/04/20 Clinical Problems: Suicidal ideation, unspecified depressive disorder, history of methamphetamine use, history of PTSD, rule out major depressive disorder recurrent, rule out schizoaffective disorder, rule out bipolar disorder, lack of stable housing, lack of income, marital separation Interim history: I reviewed the medical record, interviewed the patient and discussed his treatment and treatment plan during team meeting. This is his third admission to out psychiatric unit this year. He was discharged in November 2019 with a diagnosis of bipolar disorder mixed with psychotic features, methamphetamine use disorder, history of PTSD and nicotine dependence. His last admission was result of a pickup order after he expressed suicidal thoughts to his [id number]. He was discharge on Abilify maintained a 400 mg monthly. He denied that he follow through with aftercare alleging that he did not have transportation to keep his [facility] appointments. The police brought him to the ED after he sent his ex- a text message that he was going to kill himself. He acknowledged that he sent a text message to his but alleged that he had no intention of following through with the threat. He felt depressed and "desperate" since their separation. Since the separation he is had no stable housing. He lives with friends or family and cannot be able to return to where he was living prior to admission. He alleged that he is unable to work, cannot afford a room or an apartment and has no income since he lost his security disability. During our interview he complained of feeling depressed, hopeless and helpless. However, he denied having suicidal intent, plan or wishes. He described impairments in sleep, appetite, energy and ability to concentrate. He denied experiencing auditory, visual or olfactory hallucinations. He denied ideas reference, thought insertion, thought broadcasting or thought control. He denied use illicit drugs to get high. His UDS was negative for drugs of abuse. His BAT on presentation to ED was 0.000. Mental status exam: He presented as a tall, obese a disheveled 49-year-old male. He was unshaven. He made eye contact and appeared to attend to the interview. He had no prominent physical abnormalities. He had a sad facial expression. He is alert and oriented to person, place and time. He had psychomotor retardation but no abnormal involuntary movements. Her speech was spontaneous with decreased rate, rhythm and volume. His affect was depressed and not reactive. He denied current suicidal ideation and wishes. He denied homicidal ideation. He expressed feelings of hopelessness, helplessness and worthlessness. He did not express clear ideas reference, paranoid ideation or delusions. He ruminated over the dissolution of his marriage and his loneliness. His thinking was concrete but his associations were coherent, logical and goal directed. He denied hallucinations did not appear to be responding to internal stimuli. Assessment: He is a depressed 49-year-old man with multiple social issues i ncluding her marital separation, lack of income and lack of stable housing. He presented to the [facility] under circumstances similar to his prior to admissions where he expressed suicidal thoughts to his family who called the police. Unlike his prior admission he denied using methamphetamine. He attributes his mental state to his divorce and his 's unwilling missed to consider reconciliation. He does not have current signs or symptoms of psychosis. He should best be treated inpatient basis with combination of psychopharmacology and multimodal therapy. Plan: Continue inpatient treatment. Safety precautions. Continue Abilify 15 mg daily and Prozac 40 mg daily and titrated according to clinical response and tolerance. Haldol and/or Ativan for agitation or aggression. Social work to coordinate discharge and aftercare. Obtain collateral information. Encourage participation in therapeutic groups and activities. Evaluate clinical status response to treatment daily basis.
[2020-03-04 12:24] LABS: Glucose,Whole Blood 111 mg/dL (75-99)
[2020-03-04 17:59] LABS: Glucose,Whole Blood 96 mg/dL (75-99)
[2020-03-04 20:16] LABS: Glucose,Whole Blood 111 mg/dL (75-99)
[2020-03-05 06:15] VITALS: BP 127/76; PULSE 67; RESP 17
[2020-03-05] MEDS: ARIPiprazole 15 MG TAB PO SCH (07:51)
[2020-03-05 07:52] LABS: Glucose,Whole Blood 118 mg/dL (75-99)
[2020-03-05] MEDS: metFORMIN 500 MG TAB PO SCH (07:52)
[2020-03-05] MEDS: FLUoxetine HCL 20 MG CAP PO SCH (07:52)
[2020-03-05] MEDS: NICOTINE 14MG/24HR PATCH TRANSDERM SCH (07:52)
--- NOTE | 2020-03-05 11:58 | P.DS ---
Providers Date of admission: 03/02/20 01:17 Attending physician: Jorge Wick MD Consults: 03/02/20 01:21 Consult Physician Routine Consulting Provider: Serafin Jones Consult Reason/Comments: H&p for mental health admission Do you want consulting provider notified?: Yes, Notify in am Primary care physician: Serafin Jones - Discharge Diagnosis(es) (1) Suicidal ideation Current Visit: Yes Status: Resolved Priority: Low (2) Depression Current Visit: Yes Status: Chronic Priority: Medium (3) Marital conflict involving estrangement Current Visit: Yes Status: Chronic Priority: High (4) Methamphetamine abuse Current Visit: No Status: Chronic Priority: Medium (5) Nicotine dependence Current Visit: No Status: Chronic Priority: Low Hospital Course: HISTORY: He is a 49-year-old and unemployed male readmitted to the psychiatric unit with complaints of suicidal ideation and depression. This is his third admission to our unit this year. He was last discharged in November 2019 with a diagnosis of bipolar disorder mixed with psychotic features, methamphetamine use disorder, PTSD and tobacco use. The police brought him to the ED after he sent his ex- and a text message that he was going to kill himself. He acknowledged that he sent a text message but alleged he had no intention of following through with a threat. He felt depressed and desperate since their separation. Since their separation he is had no stable housing. He lives with friends or family and cannot return to live with his mother because he was charged with retail fraud for stealing her debit card. He has a court hearing for this offense on 03/07/2020. He alleges that he is unable to work and cannot afford a room or an apartment is he has no income since he lost is so security. HOSPITAL COURSE: We admitted him to the psychiatric unit under the care of this auto service writer. We provided a comprehensive biopsychosocial assessment. The medical and health services manager completed initial physical exam and medical history and diagnosed type 2 diabetes and recommended metformin 1000 mg daily. His POC glucose range from 93-202 MG/DL during this hospitalization. Her resumed his outpatient medications including Abilify 30 mg daily and Prozac 40 mg daily. He posed no management problem and had no episodes of behavioral dyscontrol. He participated minimally in therapeutic groups and activities. He spent most of the short hospitalization was from and frequently interacting with staff or peers. He Expressed no concern about his living situation and leaves that he may return to live with a friend. During this hospitalization his reported that she was recently diagnosed with HIV. We discussed this report with the patient (he was aware of his was diagnosed with HIV) and he consented to HIV screening. MENTAL STATUS ON DISCHARGE: Time of discharge she presented as disheveled-appea ring 49-year-old moderately obese male who was pleasant on approach. He made eye contact and attended to the interview. He had no distinguishing features or prominent physical abnormalities she had a blunted facial expression. He was alert and oriented to person, place and time. He had slight psychomotor retardation but no abnormal involuntary movements. His speech was slow with decreased rhythm and volume. His affect was depressed but reactive. He denied suicidal ideation or wishes. He denied homicidal ideation. He denied feeling hopeless, helpless or worthless. He ruminated about his upcoming court hearing. He did not express ideas reference, paranoid ideation or delusions. Her thinking was concrete but his associations were coherent, logical and goal directed. He denied hallucinations and did not appear to be responding to internal stimuli. DISPOSITION: Her discharge to his prior address with follow-up through [facility]. His discharge medications included Abilify 30 mg daily and Prozac 40 mg daily. We will contact him with results to HIV screening. Patient Condition at Discharge: Stable Plan - Discharge Summary Discharge Rx Participant: Yes New Discharge Prescriptions: New ARIPiprazole [Abilify] 15 mg PO DAILY #30 tab metFORMIN HCL [Glucophage] 1,000 mg PO DAILY #30 tab Nicotine 14Mg/24Hr Patch [Habitrol] 1 patch TRANSDERM DAILY patch FLUoxetine HCL [PROzac] 40 mg PO DAILY #60 cap Continue Acetaminophen Tab [Tylenol] 650 mg PO Q4HR PRN tab PRN Reason: Pain/Discomfort Discontinued Melatonin 6 mg PO HS 30 Days tablet hydrOXYzine pamoate [Vistaril] 25 mg PO TID PRN #21 cap PRN Reason: Anxiety ARIPiprazole IM [Abilify Maintena] 400 mg IM QMONTH #1 vial Discharge Medication List Acetaminophen Tab [Tylenol] 650 mg PO Q4HR PRN tab 10/20/19 [Rx] ARIPiprazole [Abilify] 15 mg PO DAILY #30 tab 03/05/20 [Rx] FLUoxetine HCL [PROzac] 40 mg PO DAILY #60 cap 03/05/20 [Rx] Nicotine 14Mg/24Hr Patch [Habitrol] 1 patch TRANSDERM DAILY patch 03/05/20 [Rx] metFORMIN HCL [Glucophage] 1,000 mg PO DAILY #30 tab 03/05/20 [Rx] Follow up Appointment(s)/Referral(s): Serafin Jones MD [Primary Care Provider] - 1-2 days Patient Instructions/Handouts: How to Stop Smoking (DC), Depression (DC), Post Traumatic Stress Disorder (DC) Activity/Diet/Wound Care/Special Instructions: Activity and diet as tolerated. Avoid the use of street drugs and alcohol. Take all medications as prescribed. When you are in need of refills on your medicatio ns please contact your medical provider and/or outpatient psychiatrist to have this done. Please go to scheduled outpatient appointment for aftercare treatment. If symptoms return or become worse, call the crisis line at and/or go to the nearest emergency room for evaluation. Discharge Disposition: HOME SELF-CARE
[2020-03-05 12:59] LABS: Glucose,Whole Blood 96 mg/dL (75-99)
[2020-03-05 21:32] LABS: HIV 2 AB Non-Reactive (Non-Reactive); HIV AB P24 Non-Reactive (Non-Reactive); HIV P24 AG Non-Reactive (Non-Reactive)
== END 2020-03-05 14:00 | disposition home or self-care (01) | DRG 881 ==
LOC: EC 22:50 → 3MHU 03-02 01:17
PROVIDERS: ADMIT Psychiatry & Neurology Psychiatry; ATTEND Psychiatry & Neurology Psychiatry
DX: F32.9 Major depressive disorder, single episode, unspecified (principal); R45.851 Suicidal ideations; E11.9 Type 2 diabetes mellitus without complications; F15.10 Other stimulant abuse, uncomplicated; Z20.828 Contact with and (suspected) exposure to other viral communicable diseases; R45.87 Impulsiveness; F41.0 Panic disorder [episodic paroxysmal anxiety]; F43.10 Post-traumatic stress disorder, unspecified; G47.30 Sleep apnea, unspecified; I25.2 Old myocardial infarction; Z79.899 Other long term (current) drug therapy; Z87.891 Personal history of nicotine dependence; Z56.0 Unemployment, unspecified; Z63.0 Problems in relationship with spouse or partner; Z88.5 Allergy status to narcotic agent; Z81.0 Family history of intellectual disabilities
CPT/HCPCS: 80053; 80061; 80306; 81001; 82075; 84443; 85025; 87390; 87635; 99285

== ENCOUNTER 2020-03-07 01:02 | Emergency (ER) | payer OTHER ==
[2020-03-07 01:26] VITALS: RESP 18
--- NOTE | 2020-03-07 01:33 | ED ---
Psych HPI - General Chief Complaint: Psychiatric Symptoms Stated Complaint: Mental Health Time Seen by Provider: 03/07/20 01:31 Source: patient, RN notes reviewed, old records reviewed Mode of arrival: ambulatory - History of Present Illness Initial Comments: This is a 41-year-old male DF for psychiatric evaluation. Patient has depression history of depression without homicidal or suicidal thoughts. No active recent drug abuse. Patient believes any psychiatric help history of the same MD Complaint: feels depressed -: days(s) Associated Psychiatric Symptoms: depression History of same: Yes Quality: intermittent Improves With: none Worsens With: none Associated Symptoms: denies other symptoms Treatments Prior to Arrival: placed on mental health hold - Related Data Previous Rx's Medication Instructions Recorded Acetaminophen Tab [Tylenol] 650 mg PO Q4HR PRN tab 10/20/19 ARIPiprazole [Abilify] 15 mg PO DAILY #30 tab 03/05/20 FLUoxetine HCL [PROzac] 40 mg PO DAILY #60 cap 03/05/20 Nicotine 14Mg/24Hr Patch [Habitrol] 1 patch TRANSDERM DAILY patch 03/05/20 metFORMIN HCL [Glucophage] 1,000 mg PO DAILY #30 tab 03/05/20 Allergies Allergy/AdvReac Type Severity Reaction Status Date / Time codeine Allergy Severe Dyspnea Verified 03/07/20 01:26 Review of Systems ROS Statement: Those systems with pertinent positive or pertinent negative responses have been documented in the HPI. ROS Other: All systems not noted in ROS Statement are negative. Past Medical History Past Medical History: Myocardial Infarction ([place]) Additional Past Medical History / Comment(s): Abscess Last Myocardial Infarction Date:: 2016 History of Any Multi-Drug Resistant Organisms: None Reported Past Surgical History: No Surgical Hx Reported Past Psychological History: Anxiety, Depression, Panic Disorder Smoking Status: Former smoker Past Alcohol Use History: None Reported Past Drug Use History: None Reported General Exam Limitations: no limitations General appearance: alert, in no apparent distress Head exam: Present: atraumatic, normocephalic, normal inspection Eye exam: Present: normal appearance, PERRL, EOMI. Absent: scleral icterus, conjunctival injection, periorbital swelling ENT exam: Present: normal exam, mucous membranes moist Neck exam: Present: normal inspection. Absent: tenderness, meningismus, lymphadenopathy Respiratory exam: Present: normal lung sounds bilaterally. Absent: respiratory distress, wheezes, rales, rhonchi, stridor Cardiovascular Exam: Present: regular rate, normal rhythm, normal heart sounds. Absent: systolic murmur, diastolic murmur, rubs, gallop, clicks GI/Abdominal exam: Present: soft, normal bowel sounds. Absent: distended, tenderness, guarding, rebound, rigid Extremities exam: Present: normal inspection, full ROM, normal capillary refill. Absent: tenderness, pedal edema, joint swelling, calf tenderness Back exam: Present: normal inspection Neurological exam: Present: alert, oriented X3, CN II-XII intact Psychiatric exam: Present: normal affect, normal mood Skin exam: Present: warm, dry, intact, normal color. Absent: rash Course Vital Signs 03/07/20 01:25 Temperature 98.8 F Pulse Rate 98 Respiratory 18 Rate Blood Pressure 138/91 O2 Sat by Pulse 97 Oximetry - Reevaluation(s) Reevaluation #1: 03/07/20 02:55 Medical record is reviewed 03/07/20 02:55 Medically clear for psychiatric evaluation Reevaluation #2: 03/07/20 02:55 Patient is not homicidal or suicidal Medical Decision Making - Medical Decision Making 49 male to be discharged home, patient seen and evaluated psychiatry here in the ER and okay for discharge home - Lab Data Lab Results 03/07/20 Range/Units 02:04 Urine Opiates Screen Not Detected (NotDetected) Ur Oxycodone Screen Not Detected (NotDetected) Urine Methadone Screen Not Detected (NotDetected) Ur Propoxyphene Screen Not Detected (NotDetected) Ur Barbiturates Screen Not Detected (NotDetected) U Tricyclic Antidepress Not Detected (NotDetected) Ur Phencyclidine Scrn Not Detected (NotDetected) Ur Amphetamines Screen Not Detected (NotDetected) U Methamphetamines Scrn Not Detected (NotDetected) U Benzodiazepines Scrn Not Detected (NotDetected) Urine Cocaine Screen Not Detected (NotDetected) U Marijuana (THC) Screen Not Detected (NotDetected) Disposition Clinical Impression: Depression, History of posttraumatic stress disorder (PTSD) Disposition: HOME SELF-CARE Condition: Fair Instructions (If sedation given, give patient instructions): Depression (ED) Is patient prescribed a controlled substance at d/c from ED?: No Referrals: Serafin Jones MD [Primary Care Provider] - 1-2 days
[2020-03-07 02:34] LABS: Amphetamine Screen,Urine Not Detected (NotDetected); Barbiturate Screen,Urine Not Detected (NotDetected); Benzodiazepines Screen,Urine Not Detected (NotDetected); Cocaine Screen,Urine Not Detected (NotDetected); Methadone Screen, Urine Not Detected (NotDetected); Opiate Screen,Urine Not Detected (NotDetected); Oxycodone Screen, Urine Not Detected (NotDetected); Phencyclidine Screen,Urine Not Detected (NotDetected); Tricyclic Antidepressant,Urine Not Detected (NotDetected); Urn Cannabinoid Scrn Not Detected (NotDetected)
[2020-03-07 04:34] VITALS: BP 110/75; PULSE 87; TEMP 97.8
== END 2020-03-07 04:34 | disposition home or self-care (01) ==
LOC: EC 01:02
DX: F32.9 Major depressive disorder, single episode, unspecified (principal); I25.2 Old myocardial infarction; Z88.5 Allergy status to narcotic agent; Z87.891 Personal history of nicotine dependence; Z91.49 Other personal history of psychological trauma, not elsewhere classified
CPT/HCPCS: 80306; 82075; 99284